=== PATIENT | male | born 1955 | race Caucasian/White ===

== ENCOUNTER → 2017-08-07 | Day surgery (SDC) | payer OTHER ==
[2017-07-27 09:36] VITALS: Ht 170.2 cm; Wt 70.5 kg
[~2017-08-07] VITALS: Ht 170.2 cm; Wt 70.5 kg
[~2017-08-07] MED LIST: ALPR-411 PO; ASPCH81X PO; ATROPINE SULFATE 0.1 MG/ML 5ML SYR IV PRN; CALC-393 PO; CHOL100040 PO; CYAN10005 PO; EpHEDrine SULFATE INJ 50 MG/ML AMP IV PRN; FENTANYL CITRATE INJ 50 MCG/1 ML 2 ML VIAL ONE; LIDOCAINE HCL 2% 2 ML VIAL (20MG/ML) ONE; MIDAZOLAM HCL 1 MG/ML 2ML VIAL ONE; MULT-506 PO; OMEP-334 PO; ONDANSETRON INJ 2 MG/ML 2 ML VIAL ONE; PROB1CAP PO; PROPOFOL IV EMULSION 10 MG/ML 20 ML VIAL ONE; VITA1TAB4 PO
[2017-08-07 09:29] VITALS: TEMP 36.6
--- NOTE | 2017-08-07 09:44 | Endo History and Physical ---
History & Physical Date of Service: August 07, 2017. Chief Complaint: abdominal pain and diarrhea Referring Physician: Dr. Keenan Cote History of Present Illness 62 yo CM who presents for Colonoscopy secondary to abdominal pain and diarrhea. Past Surgical History Hx Cardiac Surgery: No Hx Internal Defibrillator: No Hx Pacemaker: No Hx Abdominal Surgery: No Hx of Implantable Prosthesis: No Hx Post-Op Nausea and Vomiting: No Hx Cancer Surgery: Yes (BCC REMOVAL) Hx Thoracic Surgery: No Hx Orthopedic: Yes (LEFT ARM FX REPAIR, RT LEG COMPOUND FX REPAIR, RT SHOULDER OPEN SURGERY) Hx Urinary Tract Surgery: Yes (LITHOTRIPSY) Family History Polyp Social History Smoking Status: Former Smoker Hx Substance Use: No Hx Alcohol Use: Yes (2 BEERS A DAY) Allergies Coded Allergies: No Known Allergies (Verified , 07/27/17) Current Medications Reported Home Medications Medications Dose Route/Sig Max Daily Dose Days Date Category Vitamin B-12 (Cyanocobalamin) 1,000 Mcg Tab 1,000 Mcg PO DAILY 07/27/17 Reported Calcium (Calcium Carbonate) 600 Mg Tab 1 Tab PO DAILY 07/27/17 Reported Vitamin E 400 Unit Tab 1 Tab PO DAILY 07/27/[address] (Omeprazole) 40 Mg Cap 1 Cap PO DAILY 07/27/17 Reported Vitamin D-1000 (Cholecalciferol) 1,000 Unit Tab 1 Tab PO DAILY 07/27/17 Reported Cecily Rice (Probiotic Product) 1 Cap Cap 1 Tab PO DAILY 07/27/17 Reported Multivitamin (Multivitamins) Tab 1 Tab PO QAM 10/06/15 Reported Aspirin Chewable (Aspirin) 81 Mg Chew 81 Mg PO QAM 10/06/15 Reported Xanax (Alprazolam) 0.5 Mg Tab 0.5 Mg PO HS 10/06/15 Reported Vital Signs Weight (Kilograms): 70.45 Height (Feet): 5 Height (Inches): 7 Date Time Temp Pulse Resp B/P (MAP) Pulse Ox O2 Delivery O2 Flow Rate FiO2 08/07/17 09:29 36.6 75 20 149/96 (113) 97 Room Air Physical Exam General Appearance: WD/WN, no apparent distress Respiratory/Chest: Auscultation: breath sounds normal Cardiovascular: Heart Auscultation: RRR Abdomen: Bowel Sounds: normal Inspection & Palpation: soft, non-distended, no tenderness, guarding & rebound Assessment and Plan Assessment: 62 yo CM who presents for Colonoscopy secondary to abdominal pain and diarrhea. Plan: Proceed with colonoscopy
--- NOTE | 2017-08-07 10:40 | GI REPORT ---
Patient Name: Akash Barajas Procedure Date: 08/07/2017 10:04 AM Date of : 1955 Admit Type: Outpatient Age: 62 Gender: Male Attending MD: Jack Steve DO Procedure: Colonoscopy Providers: Jack Steve DO Referring MD: Keenan Cote Indications: Chronic diarrhea Medicines: Monitored Anesthesia Care Complications: No immediate complications. Estimated Blood Loss: Estimated blood loss: none. Procedure: Pre-Anesthesia Assessment: - Prior to the procedure, a History and Physical was performed, and patient medications and allergies were reviewed. The patient's tolerance of previous anesthesia was also reviewed. The risks and benefits of the procedure and the sedation options and risks were discussed with the patient. All questions were answered, and informed consent was obtained. Prior Anticoagulants: The patient has taken aspirin, last dose was 4 days prior to procedure. ASA Grade Assessment: II - A patient with mild systemic disease. After reviewing the risks and benefits, the patient was deemed in satisfactory condition to undergo the procedure. After I obtained informed consent, the scope was passed under direct vision. Throughout the procedure, the patient's blood pressure, pulse, and oxygen saturations were monitored continuously. The scope was introduced through the anus and advanced to the terminal ileum. The colonoscopy was performed without difficulty. The patient tolerated the procedure well. The quality of the bowel preparation was good. The terminal ileum, ileocecal valve, appendiceal orifice, and rectum were photographed. Findings: The perianal and digital rectal examinations were normal. Two flat and pedunculated polyps were found in the sigmoid colon. The polyps were 7 to 15 mm in size. These polyps were removed with a hot snare. Resection and retrieval were complete. Several random biopsies were obtained with cold forceps for histology in the entire colon. Fluid aspiration for Stool studies was performed in the entire colon. Non-bleeding internal hemorrhoids were found during retroflexion. The hemorrhoids were small. Impression: - Two 7 to 15 mm polyps in the sigmoid colon, removed with a hot snare. Resected and retrieved. - Non-bleeding internal hemorrhoids. - Several random biopsies were obtained in the entire colon. - Fluid aspiration was performed. Recommendation: - Resume previous diet. - Continue present medications. - Repeat colonoscopy for surveillance based on pathology results. - Return to GI office as previously scheduled. Jack Steve DO 08/07/2017 10:39:34 AM This report has been signed electronically. Note Initiated On: 08/07/2017 10:04 AM Number of Addenda: 0 I attest to the content of the Intraoperative Record and orders documented therein, exceptions below {[id number]}
--- NOTE | 2017-08-07 10:40 | Anesthesiology Progress Note ---
Anesthesia Post Op Note Date & Time August 07, 2017 at 10:40 Vital Signs Pain Intensity: 0 Vital Signs Past 12 Hours Date Time Temp Pulse Resp B/P (MAP) Pulse Ox O2 Delivery O2 Flow Rate FiO2 08/07/17 09:29 36.6 75 20 149/96 (113) 97 Room Air Notes Mental Status: alert / awake / arousable, participated in evaluation Pt Amnestic to Procedure: Yes Nausea / Vomiting: adequately controlled Pain: adequately controlled Airway Patency, RR, SpO2: stable & adequate BP & HR: stable & adequate Hydration State: stable & adequate Anesthetic Complications: no major complications apparent
--- NOTE | 2017-08-07 10:45 | Discharge Instructions ---
Endoscopy Patient Instructions Date / Procedure(s) Performed August 07, 2017. Colonoscopy Allergy Information Coded Allergies: No Known Allergies (Verified , 07/27/17) Discharge Date / Findings August 07, 2017. Colon polyps Internal hemorrhoids Random colon biopsies Stool studies Medication Instructions Stopped Medication(s): stopped 4 days ago OK to resume all medications today as prescribed Reported Home Medications Medications Dose Route/Sig Max Daily Dose Days Date Category Vitamin B-12 (Cyanocobalamin) 1,000 Mcg Tab 1,000 Mcg PO DAILY 07/27/17 Reported Calcium (Calcium Carbonate) 600 Mg Tab 1 Tab PO DAILY 07/27/17 Reported Vitamin E 400 Unit Tab 1 Tab PO DAILY 07/27/[address] (Omeprazole) 40 Mg Cap 1 Cap PO DAILY 07/27/17 Reported Vitamin D-1000 (Cholecalciferol) 1,000 Unit Tab 1 Tab PO DAILY 07/27/17 Reported Cecily Rice (Probiotic Product) 1 Cap Cap 1 Tab PO DAILY 07/27/17 Reported Multivitamin (Multivitamins) Tab 1 Tab PO QAM 10/06/15 Reported Aspirin Chewable (Aspirin) 81 Mg Chew 81 Mg PO QAM 10/06/15 Reported Xanax (Alprazolam) 0.5 Mg Tab 0.5 Mg PO HS 10/06/15 Reported Provider Instructions Activity Restrictions - No exercising or heavy lifting for 24 hours. - Do not drink alcohol the day of the procedure. - Do not drive a car or operate machinery until the day after the procedure. - Do not make any important decisions or sign important papers in 24 hours after the procedure. Following Day: - Return to full activity which may include returning to work/school. Diet Start your diet with liquids and light foods (jello, soup, juice, toast). Then eat your usual diet if not nauseated. Treatment For Common After Affects For mild abdominal pain, bloating, or excessive gas: - Rest - Eat lightly - Lie on right side Follow-Up Information Follow-up with Dr. Keenan Cote as scheduled Anesthesia Information What You Should Know You have had a procedure that required some medicine to reduce anxiety and discomfort. This treatment is called moderate sedation. After receiving the treatment, you may be sleepy, but you will be able to breathe on your own. The effects of the treatment may last for several hours. Follow these instructions along with Activity/Diet recommendations noted above: * Do NOT do anything where dizziness or clumsiness would be dangerous. * Rest quietly at home today, then you can be up and about tomorrow. * Have a responsible person stay with you the rest of today. * You may have had an I.V. today. If so, you may take the dressing off later today. Recommendations Call your doctor if: * Trouble breathing * Continuous vomiting for more than 24 hours * Temperature above 101 degrees * Severe abdominal pain or bloating * Pain not relieved by pain medicine ordered * There is increased drainage or redness from any incision * A large amount of rectal bleeding greater than 2-3 tablespoons. (If you had a polyp/s removed or have hemorrhoids, a small amount of blood - from the rectum is to be expected.) * You have any unanswered questions or concerns. IN THE EVENT OF A SERIOUS EMERGENCY, GO TO THE NEAREST EMERGENCY ROOM Your discharge instructions were prepared by provider Jack Steve. Patient Instructions Signature Page Akash Barajas Patient (or Guardian) Signature/Date: I have read and understand the instructions given to me by my caregivers. Caregiver/RN/Doctor Signature/Date: The above-named patient and/or guardian has received patient instructions on this date. + Original Patient Signature Page (only) stays with chart. Please make copy for patient.
[2017-08-07 11:07] VITALS: BP 123/80; PULSE 69; O2SAT 94
== END | disposition home or self-care (01) ==
LOC: C.GI 08:58
PROVIDERS: ATTEND Internal Medicine
DX: R10.9 Unspecified abdominal pain (principal); R19.7 Diarrhea, unspecified; D12.5 Benign neoplasm of sigmoid colon; K57.30 Diverticulosis of large intestine without perforation or abscess without bleeding; K64.8 Other hemorrhoids; K21.9 Gastro-esophageal reflux disease without esophagitis; N18.9 Chronic kidney disease, unspecified; F41.9 Anxiety disorder, unspecified; Z83.71 Family history of colonic polyps; Z87.891 Personal history of nicotine dependence; Z79.82 Long term (current) use of aspirin

== ENCOUNTER 2020-05-14 09:13 | Inpatient (IN) ==
--- NOTE | 2020-05-11 09:50 | Anesthesiology Consultation ---
Date of Service May 11, 2020 Assessment & Plan (1) Encounter for pre-operative examination: - Per assessment on 04/21: Travel screen negative. No known COVID-19 positive contacts or current COVID-19 related symptoms. Surgeon arranged preop COVID te sting (done 05/10; [place])- result was negative. - Cardiology/EP: 01/19/20: Loop recorder: His loop recorder is working well, battery life is still good. He did activate the recorder several times, one for some atypical chest discomfort, but none of the activation showed any abnormalities and he had no automatically activated episodes. Syncope: He has not had any falls or syncope since loop recorder implantation, and no asymptomatic arrhythmias have been identified which would explain the event. PAT: He has had rare episodes of PAT as well as premature beats identified in the past which he feels is palpitations, however these are brief and I would not treat them. - Hx anesthesia issues: Patient states that remotely (20+ years ago) he was told he was a difficult intubation (no further details/unable to obtain records). No similar issues with subsequent anesthesia/surgery. He also noted that there was difficultly with block placement for shoulder surgery (again 20+ years ago/unable to obtain records). BMI 23. Patient was seen at [facility] 02/10/20 by Justin Vallejo PAC (on exam: Mallampati I, >/= 3/5 finger breadths, mildly limited neck extension, partial upper dentures) Chart Review Chart Review: Acceptable Risk for Surgery and Patient NOT seen in Pre Admission Testing History Surgery Operation Date: 05/14/20 07:00 Proposed Procedures p Right Reverse Total Shoulder Arthroplasty - Kareem Hua DO Height/Weight Height: 5 ft 7 in Weight: 68.946 kg Allergies Allergy/AdvReac Type Severity Reaction Status Date / Time No Known Drug Allergies Allergy Verified 04/21/20 11:30 Medications Home Medications Medication Instructions Recorded Confirmed Last Taken cholecalciferol (vitamin D3) 1,000 unit PO QAM 02/11/18 04/21/20 03/30/19 [Vitamin D3] multivitamin 1 tab PO QAM 02/11/18 04/21/20 03/30/19 vitamin E 400 unit PO QAM 02/11/18 04/21/20 03/30/19 calcium carbonate-vitamin D3 1 tab PO QAM 04/08/18 04/21/20 03/30/19 [Caltrate with Vitamin D3] cyanocobalamin (vitamin B-12) 1,000 mcg PO QAM 04/08/18 04/21/20 03/30/19 [Vitamin B-12] lisinopril 5 mg tablet 5 mg PO QAM #90 tab 08/19/19 04/21/20 Unknown omeprazole 20 mg PO QAM 02/02/20 04/21/20 Unknown tramadol 50 mg tablet 50 mg PO Q6H PRN #30 tab 02/11/20 04/21/20 Unknown tramadol 50 mg tablet 50 mg PO Q6H PRN #30 tab 03/09/20 04/21/20 Unknown cephalexin 500 mg capsule 500 mg PO TID #21 cap 05/10/20 05/10/20 Unknown Past Medical History Medical History (Updated 05/11/20 @ 10:39 by Ana Hammond) Acid reflux Barretts esophagus being monitored q 3 yrs, no changes Cervical disc disease Colitis c. 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 per pt > under surveillance/no recent issues History of renal stone Hypertension Impaired fasting glucose Internal hemorrhoids Leukopenia Chronic, PCP monitoring Lymphocytic gastritis Osteoarthritis Paroxysmal atrial tachycardia Rare episodes noted on loop recorder Syncope Rare (only 2 episodes over the past 2 years) > reason loop recorder inserted > no significant findings/recent issues Past Family History Family History Father Family history of diabetes mellitus Family hx colonic polyps Mother Family hx colonic polyps Denies family history of Crohn's disease Colorectal cancer Ulcerative colitis Past Surgical History Surgical History (Updated 05/11/20 @ 10:39 by Ana Hammond) Basal cell carcinoma (BCC) with removal from face Colonic polyp with removal Difficult airway for intubation Patient states he was told this remotely 20 years ago (no further details/unable to obtain records), patient states no similar issues with subsequent anesthesia/surgery History of arthroscopy Right knee History of colonoscopy History of esophagogastroduodenoscopy (EGD) History of lithotripsy History of loop recorder Implanted 2017 History of tooth extraction Hx of foot surgery RIGHT AND LEFT FOOT PLANTAR FASCIATITIS REPAIR Hx of hand surgery FINGER FX REPAIRED Hx of shoulder surgery RT/LEFT> had difficulty with nerve block for one of these over 20 yrs ago Social History Smoking Status: Former smoker Smoking cigarettes per day: QUIT 2010 Hx Alcohol Use: Yes Alcohol type: beer alcohol intake frequency: a few times a month substance use type: does not use Testing Laboratory Results 05/10/20 WBC 4.15 (diff unremarkable, chronic leukopenia under surveillance by PCP) H/H 15.2/44.2 PLATELETS 25 SODIUM 140 POTASSIUM 4.5 CHLORIDE 108 CO2 29 BUN 18 CREATININE 0.94 GLUCOSE 91 02/10/20 PT 11.2 PTT 26.8 INR 1.1 T&S A+Ab- Electrocardiogram Date: 02/10/20 Findings: + NSR @ Findings: + SB @ (59bpm) and + no change from (03/2018) Chest X-Ray Date: 02/10/20 FINDINGS: Loop recorder device. Cardiomediastinal and hilar silhouettes are within normal limits. Mild hyperinflation with diaphragmatic flattening. No pneumothorax, pleural effusion, airspace consolidation or overt pulmonary edema. Bones of the chest appear grossly intact. Surgical anchors of the right humeral head. Chronic widening of the right AC joint. IMPRESSION: No acute process. Echocardiogram Date: 04/16/18 EF: 55-60% The LV size, thickness and function are normal. No regional wall motion abnormalities noted. Grade 1 diastolic dysfunction. Mild mitral regurgitation.
--- NOTE | 2020-05-13 11:52 | History & Physical Report ---
Date of Service May 13, 2020 Assessment & Plan (1) Right rotator cuff tear: We will proceed with a right reverse shoulder arthroplasty. Postoperatively he will be placed in a sling and kept overnight in the hospital for postoperative medical management. He plans to go to outpatient physical therapy at [facility] in [place] upon discharge. History of Present Illness Chief Complaint: Right rotator cuff arthropathy. Primary Care Provider: Mamta Lassiter MD Akash is a pleasant 64-year-old male whose had a right rotator cuff repair by Dr. Uriarte about 22 years ago. He initially did well but his shoulder has been hurting more recently. 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 He has constant pain and profound weakness. After failing conservative treatment, he elected to proceed with a right reverse shoulder arthroplasty.. Allergies Allergy/AdvReac Type Severity Reaction Status Date / Time No Known Drug Allergies Allergy Verified 04/21/20 11:30 Home Medications Medication Instructions Recorded Confirmed Type cholecalciferol (vitamin D3) 1,000 unit PO QAM 02/11/18 04/21/20 History [Vitamin D3] multivitamin 1 tab PO QAM 02/11/18 04/21/20 History vitamin E 400 unit PO QAM 02/11/18 04/21/20 History calcium carbonate-vitamin D3 1 tab PO QAM 04/08/18 04/21/20 History [Caltrate with Vitamin D3] cyanocobalamin (vitamin B-12) 1,000 mcg PO QAM 04/08/18 04/21/20 History [Vitamin B-12] lisinopril 5 mg tablet 5 mg PO QAM #90 tab 08/19/19 04/21/20 Rx omeprazole 20 mg PO QAM 02/02/20 04/21/20 History tramadol 50 mg tablet 50 mg PO Q6H PRN #30 tab 02/11/20 04/21/20 Rx tramadol 50 mg tablet 50 mg PO Q6H PRN #30 tab 03/09/20 04/21/20 Rx cephalexin 500 mg capsule 500 mg PO TID #21 cap 05/10/20 05/10/20 Rx Past Med/Surg History Medical History Acid reflux Barretts esophagus being monitored q 3 yrs, no changes Cervical disc disease Colitis c. 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 per pt > under surveillance/no recent issues History of renal stone Hypertension Impaired fasting glucose Internal hemorrhoids Leukopenia Chronic, PCP monitoring Lymphocytic gastritis Osteoarthritis Paroxysmal atrial tachycardia Rare episodes noted on loop recorder Syncope Rare (only 2 episodes over the past 2 years) > reason loop recorder inserted > no significant findings/recent issues Surgical History Basal cell carcinoma (BCC) with removal from face Colonic polyp with removal Difficult airway for intubation Patient states he was told this remotely 20 years ago (no further details/unable to obtain records), patient states no similar issues with subsequent anesthesia/surgery History of arthroscopy Right knee History of colonoscopy History of esophagogastroduodenoscopy (EGD) History of lithotripsy History of loop recorder Implanted 2017 History of tooth extraction Hx of foot surgery RIGHT AND LEFT FOOT PLANTAR FASCIATITIS REPAIR Hx of hand surgery FINGER FX REPAIRED Hx of shoulder surgery RT/LEFT> had difficulty with nerve block for one of these over 20 yrs ago Family History Father Family history of diabetes mellitus Family hx colonic polyps Mother Family hx colonic polyps Denies family history of Crohn's disease Colorectal cancer Ulcerative colitis Social History Smoking Status: Former smoker Cigarettes Per Day: QUIT 2010; Second Hand Exposure: No; Hx Alcohol Use: Yes Alcohol type: beer Alcohol Intake Frequency Comment: 2-3 drinks/day Preferred Language: Ukrainian Communication Ability: Effective Visual Impairment: Limited Hearing Ability: Normal [employer] Required: No Beliefs That Will Affect Care: None marital status: Current Living Situation: Spouse current occupational status: retired Feels Safe at Home: Yes Seatbelt Use: always Assistive Devices: Denture - Upper, Denture - Lower and Glasses Review of Systems All systems reviewed & are unremarkable except as noted in HPI & below. Physical Exam On physical examination of the right shoulder, he has relatively full active range of motion but only 3 out of 5 motor strength with full can testing in 4-5 motion with external rotation. He has a negative belly press test and pain in the subacromial space.. Constitutional WD/WN, vitals as above Eyes PERRL, conjunctivae normal, anicteric sclerae ENMT external ear and nose normal, oropharynx normal Neck trachea midline, no thyromegaly Respiratory normal respiratory effort Cardiovascular RRR, no murmur, no edema Gastrointestinal (Abdomen) normal bowel sounds, soft, nontender, no hepatosplenomegaly Psychiatric A+Ox3, euthymic affect Results & Data Results & Data Laboratory Results . Diagnostic Findings X-rays of the right shoulder show superior migration of the humeral head on the glenoid. There is contact with the humeral head and the acromion. There are signs of old anchor placement.. PG Care Time/CCT Total # of Minutes Spent Total Time Spent with Patient: Total time spent is greater than 50% in coordination of care (as documented) at patient's floor/unit and/or counseling patient: Coding Level of Care Code None Diagnoses Right rotator cuff tear M75.101
--- NOTE | 2020-05-14 09:12 | History & Physical Bridge Note ---
Date of Service May 14, 2020 History & Physical Bridge Note I have examined the patient, reviewed the History & Physical and in the interval since the performance of the History & Physical I have noted the following changes of clinical significance: no changes noted
[~2020-05-14 09:13] MED LIST changes: +ACETAMINOPHEN 500 MG TAB PO SCH; -ALPR-411 PO; -ASPCH81X PO; -ATROPINE SULFATE 0.1 MG/ML 5ML SYR IV PRN; +BUPIVACAINE 0.5 % 5 MG/1 ML PF 10ML VIAL ONE; -CALC-393 PO; -CHOL100040 PO; -CYAN10005 PO; +DEXAMETHASONE SOD INJ 4 MG/ML VIAL ONE; -EpHEDrine SULFATE INJ 50 MG/ML AMP IV PRN; +FAMOTIDINE 20 MG TAB PO SCH; -FENTANYL CITRATE INJ 50 MCG/1 ML 2 ML VIAL ONE; +GABAPENTIN 300 MG CAP PO SCH; -LIDOCAINE HCL 2% 2 ML VIAL (20MG/ML) ONE; +LIDOCAINE HCL 2% 2 ML VIAL/AMP(20MG/ML) INFIL ONE; +LR 15ML/HR IV SCH; +LR 60ML/HR IV SCH; -MULT-506 PO; -OMEP-334 PO; -PROB1CAP PO; +PROPOFOL IV EMULSION 10 MG/ML 20 ML VIAL IV ONE; -PROPOFOL IV EMULSION 10 MG/ML 20 ML VIAL ONE; +ROPIVACAINE 0.5% HCL/PF 150 MG, BUPIVACAINE 0.75% MPF 20 ML, EPINEPHrine 30MG/30ML (OR ... INSTIL SCH; +TRANEXAMIC ACID 1,000 MG **IV Intra-op IV SCH; +TRANEXAMIC ACID 1,000 MG **IV Pre-op IV SCH; -VITA1TAB4 PO; +ceFAZolin 1000MG 1,000 MG/7.5 ML SYR IV SCH; +dexAMETHasone 4 MG TAB PO SCH; +fentaNYL citrate 100 MCG/2 ML VIAL ONE
[2020-05-14] MEDS ORDERED: ATROPINE SULFATE 0.1 MG/ML 10ML SYR IV PRN (09:58)
[2020-05-14] MEDS ORDERED: fentaNYL citrate 100 MCG/2 ML VIAL IV PRN (09:58)
[2020-05-14] MEDS ORDERED: ONDANSETRON INJ 2 MG/ML 2 ML VIAL IV PRN ×2 (09:58→13:13)
[2020-05-14] MEDS ORDERED: ePHEDrine sulfate 50 MG/ML AMP IV PRN (09:58)
[2020-05-14] MEDS ORDERED: ORTHO JOINT ANESTHETIC ONE (10:00)
[2020-05-14] MEDS ORDERED: PHENYLEPHRINE 100MCG/ML 5ML SYR ONE (11:20)
[2020-05-14] MEDS ORDERED: ePHEDrine sulfate 50 MG/ML SYR ONE (11:20)
[2020-05-14] MEDS ORDERED: GLYCOPYRROLATE 0.2 MG/ML VIAL ONE (11:20)
--- NOTE | 2020-05-14 11:41 | Operative Report ---
PG Post Operative Report Pre & Post Diagnosis Operation Date: 05/14/20 11:40 Pre-Op Diagnosis: Right Shoulder Degenerative Joint Disease Post-Op Diagnosis: Right Shoulder Degenerative Joint Disease I identified the patient and participated in the time-out.: Yes Procedure Operation Date: 05/14/20 11:40 Actual Procedures p Right Reverse Total Shoulder Arthroplasty(Right) - Kareem Hua DO Surgeon Kareem Hua DO Risk Management Professional Kareem Chambers PAC Estimated Blood Loss 200 Findings Consistent with Post-Op Diagnosis Specimens Right humeral head Complications none Disposition Disposition: Recovery Room Indications Akash is a pleasant six 4-year-old male who underwent a rotator cuff repair 22 years ago. He initially did well but his shoulder is been worse recently. He is having difficulty doing any activities overhead. He has a lot of weakness in that shoulder. X-rays and clinical examination have been diagnostic for rotator cuff arthropathy of the right shoulder. After failing conservative treatment, he elected proceed with a right reverse shoulder arthroplasty. Description of Procedure Implants used: I used a [employer] Comprehensive reverse total shoulder arthroplasty system with a size 13 press fit micro humeral stem, a standard humeral tray and a standard humeral bearing, a 25 mm small augment baseplate with a 6.5 mm central screw and superior and inferior locking screws, and a size 40 mm eccentric glenosphere. Akash arrived at [facility] for the above procedure. He was seen in the preoperative holding area and the operative extremity was identified and s igned. He was given a preoperative antibiotic, TXA, and an interscalene nerve block. He was taken back to the operating room, laid on table in supine position, and put under general anesthesia. He was then put into the beachchair position. The shoulder was then prepped and draped in sterile fashion. A timeout was done and the patient and the operative extremity was properly identified. A deltopectoral approach was used. Dissection was taken down through the fascia and the deltoid was retracted laterally and the conjoined tendon was retracted medially. The anterior shoulder was exposed. The biceps tendon was chronically torn and not present. The subscapularis was then directly released off the lesser tuberosity with a peel technique. The inferior capsule was released and the humeral head was dislocated. A canal finding reamer was sent down the center of the humeral canal. Sequential reaming up to a size 13 reamer was done. Off that reamer, a proximal humeral resection guide was placed. The proximal humerus was resected at 135 of inclination and 25 of retroversion. Osteophytes were then removed and the glenoid was exposed. Time was spent doing a complete capsular and labral release. The glenoid guide was then placed in the inferior aspect of the glenoid. A 3.2 mm Steinmann pin was then placed into the glenoid vault at 10 of inclination. The glenoid baseplate was then reamed. The final size 25 mm small augment baseplate was then impacted in the place. A 6.5 mm central screw was then placed followed by superior and inferior locking screws. A 40 mm eccentric glenosphere was then impacted into place. Surrounding soft tissues were then injected with 100 cc an orthopedic pain control cocktail. The proximal humerus was then exposed. Sequential broaching of the humerus up to a size 13 broach was done. Off that broach a standard humeral tray was trialed. The shoulder was then reduced, brought through a full range of motion, and felt to be stable. The shoulder was then dislocated and the broach was removed. The final size 13 micro press-fit humeral stem was then impacted into place. A standard humeral bearing was then snapped onto a standard humeral tray. The humeral tray was then impacted onto the humeral stem. The shoulder was once again reduced, brought through a full range of motion, and felt to be stable. The subscapularis was then tenodesed back to the lesser tuberosity with transosseous FiberWire sutures and side to side sutures with the arm in 45 of external rotation. A dilute betadyne lavage was then done for 3 minutes. The joint was then irrigated with normal saline solution. Hemostasis was obtained. The interval was closed with 2-0 Vicryl suture. The skin was then closed with 2-0 Vicryl and katerine. A Silverlon dressing was placed and the arm was rested in a regular arm sling. He was then extubated and transferred to a hospital bed. He taken to the postanesthesia care unit in stable condition. He tolerated the procedure well. Kareem Chambers PA-C, was present for the entire procedure. He was critical for patient positioning, prepping, draping, retraction exposure, wound closure and application of sterile dressing. I attest to the content of the Intraoperative Record and any orders documented therein. Any exceptions are noted below.
--- NOTE | 2020-05-14 12:46 | Anesthesiology Progress Note ---
Date of Service May 14, 2020 Anesthesia Post Procedure Vital Signs Vital Signs: Temp Pulse Pulse Resp BP Pulse Ox 05/14/20 12:35 97.3 F L 84 16 125/87 94 05/14/20 12:25 92 H 17 148/79 H 94 05/14/20 12:15 95 H 22 128/78 93 05/14/20 12:05 96 H 15 150/95 H 98 05/14/20 11:59 96.8 F L 100 H 16 140/86 98 05/14/20 09:43 98.6 F 95 H 18 140/99 91 Transfer of Care Handoff Completed per policy Notes Mental Status: alert / awake / arousable and participated in evaluation Patient Amnestic to Procedure: Yes Nausea / Vomiting: adequately controlled Pain: adequately controlled Airway Patency, RR, SpO2: stable & adequate BP & HR: stable & adequate Hydration State: stable & adequate Anesthetic Complications: no major complications apparent and Pt Satisfied with anesthetic care
--- NOTE | 2020-05-14 12:51 | XRay Report ---
XR shoulder RT min 2V routine CLINICAL HISTORY: Post shoulder surgery COMPARISON: Right shoulder radiographs January 28, 2020. FINDINGS: Alignment of the reverse total right shoulder arthroplasty is anatomic. There is no peripr osthetic fracture. No unexpected radiopaque foreign bodies noted. There are skin katerine. Previous di stal right clavicular resection is noted. IMPRESSION: Expected findings following reverse total right shoulder arthroplasty. ACT 112: Negative or not required by law. Electronically signed by: Tomas Lassiter M.D. 05/14/2020 12:50 PM
[2020-05-14] MEDS ORDERED: METOCLOPRAMIDE HCL INJ 5 MG/ML 2 ML VIAL IV PRN (13:13)
[2020-05-14] MEDS ORDERED: bisacodyL 10 MG SUPP PR PRN (13:13)
[2020-05-14] MEDS ORDERED: NALOXONE HCL 0.4 MG/1 ML VIAL/CARP IV PRN (13:13)
[2020-05-14] MEDS ORDERED: MAGNESIUM HYDROXIDE SUSP 30 ML UDC PO PRN (13:13)
[2020-05-14] MEDS ORDERED: oxyCODONE HCL IR 5 MG TAB (IMMEDIATE RELEASE) PO PRN (13:13)
[2020-05-14] MEDS ORDERED: HYDROmorphone INJ 0.5 MG/0.5 ML SYR IV PRN (13:13)
[2020-05-14] MEDS: SODIUM CHLORIDE 0.9% 1000ML 1,000 ML IV SCH (13:25)
[2020-05-14] MEDS: ACETAMINOPHEN 500 MG TAB PO SCH ×2 (14:03→20:43)
[2020-05-14] MEDS: KETOROLAC TROMETHAMINE 15 MG/ML VIAL IV SCH ×2 (14:04→20:38)
[2020-05-14] MEDS ORDERED: COUGH DROP (SUGAR FREE) LOZ 24 LOZ/1 BOX BUCCAL PRN (16:12)
[2020-05-14] MEDS: ceFAZolin 2000MG 2,000 MG/15 ML SYR IV SCH (17:40)
[2020-05-14] MEDS: DOCUSATE SODIUM 100 MG CAP PO SCH (20:38)
[2020-05-14] MEDS ORDERED: SENNA 8.6 MG TAB PO SCH (21:00)
[2020-05-15] MEDS: KETOROLAC TROMETHAMINE 15 MG/ML VIAL IV SCH ×2 (01:51→08:24)
[2020-05-15] MEDS: ceFAZolin 2000MG 2,000 MG/15 ML SYR IV SCH (01:52)
[2020-05-15] MEDS: SODIUM CHLORIDE 0.9% 1000ML 1,000 ML IV SCH (02:28)
[2020-05-15] MEDS: ACETAMINOPHEN 500 MG TAB PO SCH (06:04)
[2020-05-15 06:17] LABS: Basophils # (auto) 0.01 K/uL (0-0.2); Basophils % (auto) 0.1 %; Eosinophils # (auto) 0.01 K/uL (0-0.5); Eosinophils % (auto) 0.1 %; Hematocrit (blood only) 36.2 % (42-52); Hemoglobin 12.4 g/dL (14.0-18.0); Immature Granulocytes # (auto) 0.01 K/uL (0.00-0.02); Immature Granulocytes % (auto) 0.1 %; Lymphocytes # (auto) 1.21 K/uL (1.2-3.4); Lymphocytes % (auto) 12.5 %; Mean Corpuscular Hemoglobin 33.8 pg (25-34); Mean Corpuscular Hgb Conc 34.3 g/dL (32-36); Mean Corpuscular Volume 98.6 fL (80-100); Mean Platelet Volume 9.3 fL (7.4-10.4); Monocytes # (auto) 1.17 K/uL (0.11-0.59); Monocytes % (auto) 12.1 %; Neutrophils # (auto) 7.24 K/uL (1.4-6.5); Neutrophils % (auto) 75.1 %; Platelet Count 196 K/uL (130-400); RDW Coefficient of Variation 12.7 % (11.5-14.5); RDW Standard Deviation 45.8 fL (36.4-46.3); Red Blood Count 3.67 M/uL (4.7-6.1); White Blood Count 9.65 K/uL (4.8-10.8)
[2020-05-15 06:47] LABS: BUN Creatinine Ratio 11.8 (10-20); Calcium 8.3 mg/dl (8.5-10.1); Est GFR (African American) 93.9; Potassium 3.9 mmol/L (3.5-5.1)
[2020-05-15] MEDS ORDERED: dexAMETHasone 4 MG TAB PO SCH (08:00)
--- NOTE | 2020-05-15 08:17 | Orthopedic Progress Note ---
Date of Service May 15, 2020 Assessment & Plan (1) Status post reverse arthroplasty of right shoulder: Overall he is doing very well. Is not having much pain in the right shoulder. He will be seen by physical therapy today for ambulation and range of motion exercises. He can be discharged home later today. He will follow-up with orthopedics in 2 weeks. Dara Bustos was seen and examined at bedside this morning. Overall is doing very well. Is not having much pain in the right shoulder. He is happy with his progress to this point. He has no complaints.. Review of Systems All systems reviewed & are unremarkable except as noted in HPI & below. Physical Exam On physical examination of the right shoulder, the dressing is clean and dry. His radial, median, and ulnar nerves are checked and intact at his wrist. His axillary nerve was not checked yet. He is wearing his sling as instructed.. Results & Data Results & Data Laboratory Results H & H 05/15/20 Range/Units 05:33 Hgb 12.4 L (14.0-18.0) g/dL Hct 36.2 L (42-52) % . Diagnostic Findings Postoperative x-rays of the right shoulder show the prosthesis to be in anatomic alignment without any evidence of fracture, dislocation, or loosening. PG Care Time/CCT Total # of Minutes Spent Total Time Spent with Patient: Total time spent is greater than 50% in coordination of care (as documented) at patient's floor/unit and/or counseling patient: Coding Level of Care Code 44058 Post Operative Follow-Up Diagnoses Status post reverse arthroplasty of right shoulder Z96.611
--- NOTE | 2020-05-15 08:19 | Discharge Summary ---
Date of Service May 15, 2020 Admission HPI (Per Admitting) Akash is a pleasant 64-year-old male whose had a right rotator cuff repair by Dr. Uriarte about 22 years ago. He initially did well but his shoulder has been hurting more recently. He is an avid fly fisherman. He is unable to tie flies serving [place]. He has constant pain and profound weakness. After failing conservative treatment, he elected to proceed with a right reverse shoulder arthroplasty.. Admission Exam (Per Admitting) On physical examination of the right shoulder, he has relatively full active range of motion but only 3 out of 5 motor strength with full can testing in 4-5 motion with external rotation. He has a negative belly press test and pain in the subacromial space.. Principal Diagnosis Same as "Discharge Diagnosis" noted below under Discharge Instructions. Discharge Exam On physical examination of the right shoulder, the dressing is clean and dry. His radial, median, and ulnar nerves are checked and intact at his wrist. His axillary nerve was not checked yet. He is wearing his sling as instructed.. Discharge Data Consultations 05/14/20 13:13 Consult Case Management - Discharge Planning Routine Procedures Performed Operation Date: 05/14/20 11:40 Actual Procedures p Right Reverse Total Shoulder Arthroplasty(Right) - Kareem Hua DO Ordered Studies 05/14/20 05:00 US - OR guided needle placemen Routine Hospital Course (1) Status post reverse arthroplasty of right shoulder: On May 14, 2020 Akash arrived at [facility] and underwent a right reverse shoulder arthroplasty without complication. He had a general anesthetic and a right interscalene nerve block. Postoperatively he was placed in a sling and transferred to the general orthopedic floors. His hospital course was uneventful. On postop day #1 his H&H was stable and his pain was well controlled. He was able to participate well with physical therapy doing ambulation and range of motion exercises. He was then discharged home. He will follow-up with orthopedics in 2 weeks. PG Care Time/CCT Total # of Minutes Spent Total Time Spent with Patient: Total time spent is greater than 50% in coordination of care (as documented) at patient's floor/unit and/or counseling patient: Discharge Plan Discharge Items Patient Disposition: Home - Home Health Services Reason For Visit: Right Shoulder Degenerative Joint Disease Discharge Diagnosis: Right reverse shoulder Activity: As commented below Non-emergency contact: Surgeon Call non-emergency contact if: your wound has increased redness Follow-up/Referrals: Mamta Lassiter MD [Primary Care Provider] - Diet: Regular Addtl Attending Provider Instructions: Activity and Therapy Recommendations: * If you are using [facility] then therapy will be provided at your home until they feel you have accomplished all of your goals. * If you are using [facility] then Physical Therapy will be provided until they feel you are ready to start Outpatient Physical Therapy. * If you are not using home therapy then Outpatient Physical Therapy should start about 3-5 days from your day of surgery. Therapy will last about 8-12 weeks * Wear your sling for 3 weeks, unless otherwise instructed. You may remove your sling to shower and to dress, but otherwise, you should be in your sling at all times, including while sleeping * The shoulder replacement is very stable and you can use your hand while in the sling * You were shown a series of exercises in the hospital. Do these exercises daily including the exercises you were shown in physical therapy. Medications: * Narcotic You will likely be sent home from the hospital with a prescription for the narcotic pain medication that worked best throughout your stay. * Other medications may be prescribed for specific circumstances. If you have any questions, please call the office at . * Resume previous home medications unless otherwise instructed Dressing Care: Leave the Silverlon dressing in place for 7 days. After 7 days you may remove the dressing. If the incision is not draining then you may leave the katerine open to air. If there is a little bit of drainage or if the katerine are getting stuck on your clothing then cover the incision with a dry dressing. The katerine will be removed at your 2 week follow-up appointment. Showering: You may shower with the Silverlon dressing in place. Do not let the shower spray hit the dressing directly. Pat the Silverlon dressing dry. If the dressing becomes wet underneath, then simply remove the dressing. Keep the incision dry until you are 7 days out from the day of surgery. After 7 days you may remove the Silverlon dressing and shower with the katerine exposed. Let soapy water run over the katerine and pat them dry. Do not scrub or soak the incision. Things To Watch For: * Drainage from the incision site that occurs more than one week after your surgery. * Increased redness at the incision site. * Fever above 102 degrees Fahrenheit. * Unusual chest pain or shortness of breath. * Call [facility] at with any of the above problems Follow-Up Visit: Follow-up with Dr. Hua's PA (Kareem Chambers) 2-3 weeks after your day of surgery. He will remove your katerine and answer any questions. If you have any additional questions or concerns, Dr Hua is usually in the office at the same time and will be available An appointment was probably scheduled when you signed-up for surgery in the office. If you have any questions call More detailed instructions as well as Frequently Asked Questions were provided in a folder by our office when you signed-up for surgery. Please review these instructions when you get home. If you have any further questions or concerns, please feel free to call the office at [phone] Pending Studies at Discharge: No Stand-Alone Forms: [facility], Smoking Cessation Medications and DC Order Prescriptions: New oxycodone 5 mg Tablet 5 mg PO Q4H PRN (Reason: pain) Qty: 30 RF: 0 Continued lisinopril 5 mg tablet 5 mg PO QAM Qty: 90 RF: 3 tramadol 50 mg tablet 50 mg PO Q6H PRN (Reason: pain) Qty: 30 RF: 0 tramadol 50 mg tablet 50 mg PO Q6H PRN (Reason: pain) Qty: 30 RF: 0 multivitamin Tablet 1 tab PO QAM RF: 0 vitamin E 400 unit Capsule 400 unit PO QAM RF: 0 cholecalciferol (vitamin D3) [Vitamin D3] 1,000 unit Capsule 1,000 unit PO QAM RF: 0 cyanocobalamin (vitamin B-12) [Vitamin B-12] 1,000 mcg Tablet 1,000 mcg PO QAM RF: 0 calcium carbonate-vitamin D3 [Caltrate with Vitamin D3] 600 mg(1,500mg) -800 unit Tablet 1 tab PO QAM RF: 0 omeprazole 20 mg capsule,delayed release(DR/EC) 20 mg PO QAM RF: 0 Discharge Orders: Discharge Order (Routine); Ordered 05/15/20 Ordered By: Kareem Hua Admission Data Admit Date/Time: 05/14/20 13:38 Attending Provider: Kareem Hua Admit Provider: Kareem Hua Primary Care Provider: Mamta Lassiter
[2020-05-15] MEDS: DOCUSATE SODIUM 100 MG CAP PO SCH (08:22)
[2020-05-15] MEDS ORDERED: PANTOprazole 40 MG TAB PO SCH (09:00)
[2020-05-15] MEDS ORDERED: lisinopril 5 MG TAB PO SCH (09:00)
[2020-05-15] MEDS ORDERED: MULTIVITAMIN TAB PO SCH (09:00)
== END 2020-05-15 11:07 | disposition home or self-care (01) | DRG 483 ==
LOC: ASU 09:13 → 3E 13:38

== ENCOUNTER 2020-12-14 19:55 | Inpatient (IN) ==
[2020-12-14] MEDS ORDERED: CEFEPIME 2,000 MG/20 ML VIAL IV STA (21:08)
[2020-12-14 22:11] LABS: Albumin Level 2.8 gm/dl (3.4-5.0); BUN Creatinine Ratio 14.6 (10-20); Calcium 8.9 mg/dl (8.5-10.1); Creatinine Clr Calc Pharmacy 76.2 ml/min; Est GFR (Non-African American) 88.9 ml/min; Potassium 3.7 mmol/L (3.5-5.1)
[2020-12-14 22:14] LABS: Albumin Globulin Ratio 0.6 (0.9-2); Bilirubin,Total 0.3 mg/dl (0.2-1); Globulin 4.5 gm/dl (2.5-4.0); Total Protein 7.3 gm/dl (6.4-8.2)
[2020-12-14 22:15] LABS: Hematocrit (blood only) 39.9 % (42-52); Mean Corpuscular Hemoglobin 33.5 pg (25-34); Mean Corpuscular Hgb Conc 35.1 g/dL (32-36); Mean Corpuscular Volume 95.5 fL (80-100); RDW Coefficient of Variation 12.6 % (11.5-14.5); RDW Standard Deviation 43.7 fL (36.4-46.3); Red Blood Count 4.18 M/uL (4.7-6.1); White Blood Count 2.66 K/uL (4.8-10.8)
--- NOTE | 2020-12-14 22:19 | Emergency Department Note ---
Impression & Plan Neutropenic fever, Neutropenia, Leukopenia ED Provider Note NAME: RACHEL DIAZ AGE: 65 SEX: M : 1955 ARRIVES VIA: Walk-In INFORMANT: Patient ED PROVIDER(S): Hussein Stark DO CHIEF COMPLAINT: fevers and weakness HPI: Patient is a 65-year-old male with a past story of SVT, leukopenia, gastric varices, Stone's esophagus, hypertension that presents to the ER for fevers. Patient was having fevers this weekend above 100.4. This occurred on Sunday. H e has been feeling very weak and rundown. He had blood work performed by his PCP today which showed an severe neutropenia. There was no blasts. He denies any headache or change in vision. No chest pain or shortness of breath. No nausea, vomiting, or diarrhea. No dysuria, urgency, or frequency. He had a mild left-sided abdominal ache which is now resolved. ROS: See above HPI for pertinent positives & negatives. A total of 10 systems reviewed and were otherwise negative. PAST MEDICAL HISTORY:See Below PAST SURGICAL HISTORY:See Below FAMILY HISTORY:See Below SOCIAL HISTORY:See Below HOME MEDICATIONS:See Below ALLERGIES:See Below VITALS:See Below PHYSICAL EXAMINATION: GENERAL: Sitting up in bed, alert, well appearing, well nourished, no distress, non-toxic EYE EXAM: normal conjunctiva. PERRL and EOM's grossly intact. OROPHARYNX: no exudate, no erythema, lips, buccal mucosa, and tongue normal and mucous membranes are moist NECK: supple, no nuchal rigidity, no adenopathy, non-tender LUNGS: Clear to auscultation. Normal chest wall mechanics HEART: no murmurs, S1 normal and S2 normal ABDOMEN: abdomen soft, non-tender, normo-active bowel sounds, no masses, no rebound or guarding. UPPER EXTREMITIES: upper extremities are grossly normal. LOWER EXTREMITIES: No pitting edema. NEURO EXAM: Normal sensorium, cranial nerves II-XII grossly intact, normal speech, no gross weakness of arms, no gross weakness of legs. MEDICAL DECISION MAKING: Patient is a 65-year-old male referred in by PCP for neutropenic fever. Patient has been having fevers over the weekend they were 101 on Sunday. Patient blood work done by PCP with a severe neutropenia in the 400s. WBC shows mild leukopenia at 2.6. Mild anemia. BMP along with LFTs bili was under unremarkabl e. UA was clean. Covid was negative. Patient was given IV cefepime for concern for neutropenic fevers. Patient was given IV fluids. Was monitored closely. Chest x-ray was unremarkable. He was updated at bedside. Discussed with the hospitalist for further evaluation. Triage Nursing notes reviewed. Limited review of prior medical records performed Vital Signs: reviewed and remarkable for HTN Differential diagnosis: Differential diagnosis includes etiologies such as sepsis, UTI, pneumonia, metabolic, electrolyte abnormalities, cardiac sources, intracerebral event, toxicologic, neurological, as well as others were entertained. ER treatment provided: See below Diagnostics interpreted by me: ECG: none Cardiac Monitoring: An order was placed for continuous cardiac monitoring. The monitor shows a rate of 62 with sinus rhythm. Laboratory studies: As stated above and show below. Imaging studies: Portable AP upright 1 view of the chest shows prosthetic right shoulder, loop recorder over the left chest wall, atelectasis in the right lower lobe, no focal infiltrate per my read Consultation(s): Discussed with Ruth Morris for further evaluation Procedures: none Critical Care: None Past Med/Surg History Medical History (Updated 12/15/20 @ 00:22 by Hussein Stark DO) Acid reflux Barretts esophagus being monitored q 3 yrs, no changes Basal cell carcinoma (BCC) with removal from face Cervical disc disease Colitis c. 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 per pt > under surveillance/no recent issues History of renal stone Hypertension Internal hemorrhoids Leukopenia Chronic, PCP monitoring Lymphocytic gastritis Osteoarthritis Paroxysmal atrial tachycardia Rare episodes noted on loop recorder Syncope Rare (only 2 episodes over the past 2 years) > reason loop recorder inserted > no significant findings/recent issues Surgical History (Updated 08/02/20 @ 11:29 by Bel Cerda RN) Colonic polyp with removal Difficult airway for intubation Patient states he was told this remotely 20 years ago (no further details/un able to obtain records), patient states no similar issues with subsequent anesthesia/surgery History of arthroscopy Right knee History of colonoscopy History of esophagogastroduodenoscopy (EGD) History of lithotripsy History of loop recorder Implanted 2017 History of surgical removal of skin lesion BCC removal from face History of tooth extraction Hx of foot surgery RIGHT AND LEFT FOOT PLANTAR FASCIATITIS REPAIR Hx of hand surgery FINGER FX REPAIRED Hx of shoulder surgery RT/LEFT> had difficulty with nerve block for one of these over 20 yrs ago Status post reverse arthroplasty of right shoulder (~04/2020) Family History Father Family history of diabetes mellitus Family hx colonic polyps Mother Family hx colonic polyps Denies family history of Crohn's disease Colorectal cancer Ulcerative colitis Social History Smoking Status: Never smoker Cigarettes Per Day: QUIT 2010; Second Hand Exposure: No; Hx Alcohol Use: Yes Alcohol type: beer Alcohol Intake Frequency Comment: 2-3 drinks/day Hx Substance Use: No Preferred Language: Malaysian Communication Ability: Effective Visual Impairment: No Limitations Hearing Ability: Normal Painter And Decorator Required: No Beliefs That Will Affect Care: None marital status: Current Living Situation: Spouse current occupational status: retired Feels Safe at Home: Yes Seatbelt Use: always Assistive Devices: Denture - Upper, Denture - Lower and Glasses Allergies Allergies Allergy/AdvReac Type Severity Reaction Status Date / Time No Known Drug Allergies Allergy Unknown Verified 12/14/20 21:02 Home Meds Home Medications Medication Instructions Recorded Confirmed cholecalciferol (vitamin D3) 25 1,000 unit PO QAM 02/11/18 12/14/20 mcg (1,000 unit) capsule (Vitamin D3) multivitamin 1 tab PO QAM 02/11/18 12/14/20 vitamin E 400 unit capsule 400 unit PO QAM 02/11/18 12/14/20 calcium carbonate-vitamin D3 600 1 tab PO QAM 04/08/18 12/14/20 mg (1,500 mg)-800 unit tablet (Caltrate with Vitamin D3) cyanocobalamin (vitamin B-12) 1,000 mcg PO QAM 04/08/18 12/14/20 1,000 mcg tablet (Vitamin B-12) omeprazole 20 mg capsule,delayed 20 mg PO QAM 08/02/20 12/14/20 release Previous Rx's Medication Instructions Recorded amoxicillin 500 mg tablet 2,000 mg PO ONCE PRN #4 tab 07/15/20 lisinopril 5 mg tablet 5 mg PO DAILY #90 tab 08/09/20 mometasone 0.1 % topical cream 1 applic TOPICAL DAILY PRN #45 g 09/22/20 Results & Data (ED) Vital Signs Vital Signs - 24 hr 12/14/20 20:00 12/14/20 20:46 12/14/20 22:00 Temperature 36.9 C Temperature Source Oral Pulse Rate 81 Pulse Rate [Carotid] 64 59 L Pulse Rhythm [Carotid] Regular Regular Pulse Strength [Carotid] Normal Respiratory Rate 18 9 L 14 Respiratory Effort / Characteristics Non-Labored Spontaneous Non-Labored Respiratory Depth Normal Normal Normal Respiratory Pattern Regular Blood Pressure 132/87 Blood Pressure [Left Arm] 150/87 H 145/89 H Blood Pressure Mean 102 Blood Pressure Mean [Left Arm] 108 107 Blood Pressure Position Sitting Blood Pressure Position [Left Arm] Sitting Lying Pulse Oximetry 96 96 96 Oxygen Delivery Method Room Air Room Air Room Air Sepsis Recent Fever Within 48 Hours Yes Sepsis New/Unexplained Change in Mental Status N/A Sepsis Action Taken by Nursing No Action Required 12/14/20 23:00 Temperature Temperature Source Pulse Rate Pulse Rate [Carotid] 61 Pulse Rhythm [Carotid] Pulse Strength [Carotid] Respiratory Rate 18 Respiratory Effort / Characteristics Respiratory Depth Respiratory Pattern Blood Pressure Blood Pressure [Left Arm] 140/82 Blood Pressure Mean Blood Pressure Mean [Left Arm] 101 Blood Pressure Position Blood Pressure Position [Left Arm] Pulse Oximetry 95 Oxygen Delivery Method Room Air Sepsis Recent Fever Within 48 Hours Sepsis New/Unexplained Change in Mental Status Sepsis Action Taken by Nursing Laboratory Data Result diagrams: 12/14/20 21:15 12/14/20 21:15 Lab Results 12/14/20 12/14/20 12/14/20 Range/Units 21:15 21:15 21:22 WBC 2.66 L (4.8-10.8) K/uL RBC 4.18 L (4.7-6.1) M/uL Hgb 14.0 (14.0-18.0) g/dL Hct 39.9 L (42-52) % MCV 95.5 (80-100) fL MCH 33.5 (25-34) pg MCHC 35.1 (32-36) g/dL RDW Std Deviation 43.7 (36.4-46.3) fL RDW Coeff of Sorin 12.6 (11.5-14.5) % Plt Count 94 L (130-400) K/uL MPV 9.4 (7.4-10.4) fL Neutrophils % (Manual) 25.4 % Lymphocytes % (Manual) 44.7 % Reactive Lymphs % (Man) 15.8 % Monocytes % (Manual) 11.4 % Eosinophils % (Manual) 1.8 % Basophils % (Manual) 0.9 % Neutrophils # (Manual) 0.68 L (1.4-6.5) K/uL Total Absolute Neuts 0.68 L* (1.4-6.5) K/uL Lymphocytes # (Manual) 1.19 L (1.2-3.4) K/uL Reactive Lymphs # 0.42 K/uL Total Abs Lymphocytes 1.61 (1.2-3.4) K/uL Monocytes # (Manual) 0.30 (0.11-0.59) K/uL Eosinophils # (Manual) 0.05 (0-0.5) K/uL Basophils # (Manual) 0.02 (0-0.2) K/uL RBC Morphology Unremarkable Sodium 141 (136-145) mmol/L Potassium 3.7 (3.5-5.1) mmol/L Chloride 106 (98-107) mmol/L Carbon Dioxide 28 (21-32) mmol/L Anion Gap 7.0 (3-11) BUN 13 (7-18) mg/dl Creatinine 0.88 (0.6-1.4) mg/dl Est Cr Clr Drug Dosing 76.2 ml/min Est GFR ( Amer) 103.0 ml/min Est GFR (Non-Af Amer) 88.9 ml/min BUN/Creatinine Ratio 14.6 (10-20) Glucose 87 (70-99) mg/dl Calcium 8.9 (8.5-10.1) mg/dl Total Bilirubin 0.3 (0.2-1) mg/dl AST 47 H (15-37) U/L ALT 46 (12-78) U/L Alkaline Phosphatase 73 (45-117) U/L Total Protein 7.3 (6.4-8.2) gm/dl Albumin 2.8 L (3.4-5.0) gm/dl Globulin 4.5 H (2.5-4.0) gm/dl Albumin/Globulin Ratio 0.6 L (0.9-2) Urine Color Urine Appearance (Clear) Urine pH (4.5-7.5) Ur Specific [place] (1.000-1.030) Urine Protein (Negative) Urine Glucose (UA) (Negative) Urine Ketones (Negative) Urine Blood (Negative) Urine Nitrite (Negative) Urine Bilirubin (Negative) Urine Urobilinogen (Negative) Ur Leukocyte Esterase (Negative) Urine WBC (Auto) Urine RBC (Auto) U Hyaline Cast (Auto) U Epithel Cells (Auto) Urine Bacteria (Auto) Ur Renal Epithelial Cell Urine Crystals Calcium Oxalate Crystal Uric Acid Crystals Triple Phos Crystals Other Crystals Amorphous Sediment Granular Casts Waxy Casts RBC Casts WBC Casts Other Casts Urine Mucus Urine Other Urine Trichomonas Urine Yeast Urine Sperm Ur Oval Fat Bodies COVID-19 Eval Order Covid19 at [facility] SARS-CoV-2 (PCR) (Negative) 12/14/20 12/14/20 12/14/20 Range/Units 21:22 22:35 Unknown WBC (4.8-10.8) K/uL RBC (4.7-6.1) M/uL Hgb (14.0-18.0) g/dL Hct (42-52) % MCV (80-100) fL MCH (25-34) pg MCHC (32-36) g/dL RDW Std Deviation (36.4-46.3) fL RDW Coeff of Sorin (11.5-14.5) % Plt Count (130-400) K/uL MPV (7.4-10.4) fL Neutrophils % (Manual) % Lymphocytes % (Manual) % Reactive Lymphs % (Man) % Monocytes % (Manual) % Eosinophils % (Manual) % Basophils % (Manual) % Neutrophils # (Manual) (1.4-6.5) K/uL Total Absolute Neuts (1.4-6.5) K/uL Lymphocytes # (Manual) (1.2-3.4) K/uL Reactive Lymphs # K/uL Total Abs Lymphocytes (1.2-3.4) K/uL Monocytes # (Manual) (0.11-0.59) K/uL Eosinophils # (Manual) (0-0.5) K/uL Basophils # (Manual) (0-0.2) K/uL RBC Morphology Sodium (136-145) mmol/L Potassium (3.5-5.1) mmol/L Chloride (98-107) mmol/L Carbon Dioxide (21-32) mmol/L Anion Gap (3-11) BUN (7-18) mg/dl Creatinine (0.6-1.4) mg/dl Est Cr Clr Drug Dosing ml/min Est GFR ( Amer) ml/min Est GFR (Non-Af Amer) ml/min BUN/Creatinine Ratio (10-20) Glucose (70-99) mg/dl Calcium (8.5-10.1) mg/dl Total Bilirubin (0.2-1) mg/dl AST (15-37) U/L ALT (12-78) U/L Alkaline Phosphatase (45-117) U/L Total Protein (6.4-8.2) gm/dl Albumin (3.4-5.0) gm/dl Globulin (2.5-4.0) gm/dl Albumin/Globulin Ratio (0.9-2) Urine Color Yellow Cancelled Urine Appearance Clear Cancelled (Clear) Urine pH 6.0 Cancelled (4.5-7.5) Ur Specific [place] 1.013 Cancelled (1.000-1.030) Urine Protein Negative Cancelled (Negative) Urine Glucose (UA) Negative Cancelled (Negative) Urine Ketones Negative Cancelled (Negative) Urine Blood Negative Cancelled (Negative) Urine Nitrite Negative Cancelled (Negative) Urine Bilirubin Negative Cancelled (Negative) Urine Urobilinogen Negative Cancelled (Negative) Ur Leukocyte Esterase Negative Cancelled (Negative) Urine WBC (Auto) Cancelled Urine RBC (Auto) Cancelled U Hyaline Cast (Auto) Cancelled U Epithel Cells (Auto) Cancelled Urine Bacteria (Auto) Cancelled Ur Renal Epithelial Cell Cancelled Urine Crystals Cancelled Calcium Oxalate Crystal Cancelled Uric Acid Crystals Cancelled Triple Phos Crystals Cancelled Other Crystals Cancelled Amorphous Sediment Cancelled Granular Casts Cancelled Waxy Casts Cancelled RBC Casts Cancelled WBC Casts Cancelled Other Casts Cancelled Urine Mucus Cancelled Urine Other Cancelled Urine Trichomonas Cancelled Urine Yeast Cancelled Urine Sperm Cancelled Ur Oval Fat Bodies Cancelled COVID-19 Eval Order SARS-CoV-2 (PCR) NEGATIVE (Negative) Administered Medications Discontinued Medications Cefepime HCl (Maxipime) 2,000 mg in 20 mls @ 5 mls/min IV NOW STA; Protocol Stop: 12/14/20 21:11 Last Admin: 12/14/20 22:00 Dose: 5 mls/min Documented by: [id number] Discharge Plan Visit Data Chief Complaint: Abnormal Labs/Diagnostic Testing Stated Complaint: ABNORMAL LABS ED Provider: Hussein Stark Discharge Problem: Neutropenic fever, Neutropenia, Leukopenia Forms Stand Alone Forms: My [facility] [employer] Prescriptions Prescriptions: No Action amoxicillin 500 mg tablet 2,000 mg PO ONCE PRN (Reason: prophylaxis) Qty: 4 RF: 2 lisinopril 5 mg tablet 5 mg PO DAILY Qty: 90 RF: 3 mometasone 0.1 % cream 1 applic topical DAILY PRN (Reason: skin irritation) Qty: 45 RF: 0 multivitamin Tablet 1 tab PO QAM RF: 0 vitamin E 400 unit Capsule 400 unit PO QAM RF: 0 cholecalciferol (vitamin D3) [Vitamin D3] 1,000 unit Capsule 1,000 unit PO QAM RF: 0 cyanocobalamin (vitamin B-12) [Vitamin B-12] 1,000 mcg Tablet 1,000 mcg PO QAM RF: 0 calcium carbonate-vitamin D3 [Caltrate with Vitamin D3] 600 mg(1,500mg) -800 unit Tablet 1 tab PO QAM RF: 0 omeprazole 20 mg capsule,delayed release(DR/EC) 20 mg PO QAM RF: 0 Referrals Referrals: Mamta Lassiter MD [Primary Care Provider] - Discharge Problem: Neutropenia Qualifiers: Neutropenia type: unspecified Qualified Code(s): D70.9 - Neutropenia, unspecified Leukopenia Qualifiers: Leukopenia type: unspecified Qualified Code(s): D72.819 - Decreased white blood cell count, unspecified
[2020-12-14 22:28] LABS: Mean Platelet Volume 9.4 fL (7.4-10.4); Platelet Count 94 K/uL (130-400)
[2020-12-14 23:05] LABS: Appearance Urine Clear (Clear); Bilirubin Urine Negative (Negative); Blood Urine Negative (Negative); Color Urine Yellow; Glucose Urine UA Negative (Negative); Ketones Urine Negative (Negative); Leukocyte Esterase Urine Negative (Negative); Nitrite Urine Negative (Negative); Protein Urine Negative (Negative); Specific Gravity Urine 1.013 (1.000-1.030); Urobilinogen Urine Negative (Negative)
[2020-12-14 23:38] LABS: RBC Morphology Unremarkable
[2020-12-14 23:39] LABS: ALC (manual) 1.61 K/uL (1.2-3.4); ANC (manual) 0.68 K/uL (1.4-6.5); Basophils # (manual) 0.02 K/uL (0-0.2); Basophils % (manual) 0.9 %; Eosinophils # (manual) 0.05 K/uL (0-0.5); Eosinophils % (manual) 1.8 %; Lymphocytes # (manual) 1.19 K/uL (1.2-3.4); Lymphocytes % (manual) 44.7 %; Monocytes % (manual) 11.4 %; Neutrophils # (manual) 0.68 K/uL (1.4-6.5); Neutrophils % (manual) 25.4 %; Reactive Lymphocytes # (manual) 0.42 K/uL; Reactive Lymphocytes % (manual) 15.8 %
[2020-12-15] MEDS ORDERED: SODIUM CHLORIDE 0.9% 500 ML IV ONE (00:28)
[2020-12-15 01:10] LABS: Lyme Ab IgG w/WB Rflx Negative (Negative); Lyme Ab IgM w/WB Rflx Negative (Negative)
[2020-12-15] MEDS ORDERED: POLYETHYLENE (MIRALAX) 17 GM PACK PO PRN (02:22)
[2020-12-15] MEDS ORDERED: ACETAMINOPHEN 325 MG TAB PO PRN (02:22)
--- NOTE | 2020-12-15 02:37 | History & Physical Report ---
Date of Service December 15, 2020 Assessment & Plan (1) Neutropenia: Plan: 65 yo M w/ pMHx. of Gastric varices, prior H/O C. diff, paroxysmal SVT, OA, reflux with Stone esophagus and HTN found to be neutropenic on labs. Moderate neutropenia, ANC 675.64 Unclear etiology, potentially d/t anaplasmosis given recent tick bite and lab findings vs. viral infection given recent history of vague illness vs. malignancy given night sweats although no weight loss vs. bacterial infection although no clear source CXR: similar to prior, COVID negative, thrombocytopenia with plt count of 94, AST elevated @ 47, afebrile here with last known fever Sunday Tmax 100.4F - admitted to med/surg tele - continue Cefepime for empiric coverage - started Doxycycline for possible tick born illness - consider 10 day course - peripheral smear pending - ordered anaplasma (smear and PCR) and lyme ab. testing - EBV and CMV ordered - blood cultures pending - follow ANC - may not ultimately determine cause and may require hematology referral for further testing and monitoring ETOH use - AWSS scoring in place - if persistently elevated consider starting Ativan protocol for AWSS scoring - oral thiamine and folic acid added HTN - continue Lisinopril Reflux - continue PPI Code: full Diet: regular DVT: SCD's (2) Osteoarthritis: (3) Hypertension: (4) Acid reflux: Admission and Anticipated Discharge Date Admission Date: December 15, 2020 History of Present Illness Chief Complaint: abnormal labs Primary Care Provider: Mamta Lassiter MD Akash Barajas is a 65-year-old male with a past medical history of gastric varices, prior H/O C. diff, paroxysmal SVT, OA, reflux with Stone esophagus and HTN here after he was noted to have abnormal labs ordered by PCP. He started feeling sick on Sunday of last week approx. 7 days ago when he noted sensitivity of his skin and then on Sunday night he noted joint pain. Sunday he had a temperature up to 100.4. He has had drenching sweats for the last 3 nights. Over the last couple days he has had some bloating and a distended abdomen. History of tick bite 2 weeks ago. Prior to this he was feeling well and stated that he rarely gets sick. No sick contacts. ED course: Cefepime Social Hx. Tobacco:3-5 cigarettes for 10 years quit 11 years ago ETOH: approx. 35 beers/week on average denies rec. drug use Alexus would like to be updated with any changes. # [phone] Allergies Allergy/AdvReac Type Severity Reaction Status Date / Time No Known Drug Allergies Allergy Unknown Verified 12/14/20 21:02 Home Medications Medication Instructions Recorded Confirmed Type cholecalciferol (vitamin D3) 25 1,000 unit PO QAM 02/11/18 12/14/20 History mcg (1,000 unit) capsule (Vitamin D3) multivitamin 1 tab PO QAM 02/11/18 12/14/20 History vitamin E 400 unit capsule 400 unit PO QAM 02/11/18 12/14/20 History calcium carbonate-vitamin D3 600 1 tab PO QAM 04/08/18 12/14/20 History mg (1,500 mg)-800 unit tablet (Caltrate with Vitamin D3) cyanocobalamin (vitamin B-12) 1,000 mcg PO QAM 04/08/18 12/14/20 History 1,000 mcg tablet (Vitamin B-12) amoxicillin 500 mg tablet 2,000 mg PO ONCE PRN #4 tab 07/15/20 12/14/20 Rx omeprazole 20 mg capsule,delayed 20 mg PO QAM 08/02/20 12/14/20 History release lisinopril 5 mg tablet 5 mg PO DAILY #90 tab 08/09/20 12/14/20 Rx mometasone 0.1 % topical cream 1 applic TOPICAL DAILY PRN #45 g 09/22/20 12/14/20 Rx Past Med/Surg History Medical History Acid reflux Barretts esophagus being monitored q 3 yrs, no changes Basal cell carcinoma (BCC) with removal from face Cervical disc disease Colitis c. 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 per pt > under surveillance/no recent issues History of renal stone Hypertension Internal hemorrhoids Leukopenia Chronic, PCP monitoring Lymphocytic gastritis Osteoarthritis Paroxysmal atrial tachycardia Rare episodes noted on loop recorder Syncope Rare (only 2 episodes over the past 2 years) > reason loop recorder inserted > no significant findings/recent issues Surgical History Colonic polyp with removal Difficult airway for intubation Patient states he was told this remotely 20 years ago (no further details/unable to obtain records), patient states no similar issues with subsequent anesthesia/surgery History of arthroscopy Right knee History of colonoscopy History of esophagogastroduodenoscopy (EGD) History of lithotripsy History of loop recorder Implanted 2017 History of surgical removal of skin lesion BCC removal from face History of tooth extraction Hx of foot surgery RIGHT AND LEFT FOOT PLANTAR FASCIATITIS REPAIR Hx of hand surgery FINGER FX REPAIRED Hx of shoulder surgery RT/LEFT> had difficulty with nerve block for one of these over 20 yrs ago Status post reverse arthroplasty of right shoulder (~04/2020) Family History Father Family history of diabetes mellitus Family hx colonic polyps Mother Family hx colonic polyps Denies family history of Crohn's disease Colorectal cancer Ulcerative colitis Social History Smoking Status: Former smoker Cigarettes Per Day: QUIT 2010; Smoking End Date: 2009; Second Hand Exposure: No; Do You Dip or Chew Tobacco: No; Tobacco Cessation Education Requested by Patient: No Hx Alcohol Use: Yes Alcohol type: beer Alcohol Intake Frequency Comment: 2-3 drinks/day Hx Substance Use: No Preferred Language: Montenegrin Communication Ability: Effective Visual Impairment: No Limitations Hearing Ability: Normal Regional Project Manager Required: No Beliefs That Will Affect Care: None marital status: Current Living Situation: Spouse Current Living Situation Comment: lives with at home. current occupational status: retired Other Information That Helps Us Care for You: No Feels Safe at Home: Yes Safety Concerns: Feels Safe At This Time Seatbelt Use: always Assistive Devices: Denture - Upper and Glasses Review of Systems Review of Systems: Constitutional: denies vomiting admits fever, chills, nausea, fatigue, general weakness, night sweats, 3lb weight gain Head: denies trauma, LOC admits mild headache Neurologic: denies syncope, slurring of speech, focal weakness, new numbness and tingling admits bilateral symmetric decreased sensation in hands (over the last few months) ENT: denies rhinorrhea, stuffiness, sneezing, sore throat Cardiac: denies chest pain, palpitations, leg swelling, orthopnea Pulm.: denies cough, shortness of breath, hemoptysis, sputum production GI: denies diarrhea, constipation, blood in stool, change in bowel habits : denies urgency, frequency, dysuria Physical Exam Constitutional: well developed and well nourished; no acute distress Eyes: PERRL, conjunctivae normal, anicteric sclerae ENMT: external ear and nose normal, oropharynx normal Neck: normal visual inspection Respiratory: normal respiratory effort, lungs clear to auscultation Cardiovascular: RRR, no murmur, no edema Gastrointestinal (Abdomen): - soft - no guarding - tender to palpation in the left upper quadrant Musculoskeletal: no cyanosis or clubbing, extremities motor strength 5/5 Skin: no rashes, warm and dry Neurologic: no focal motor deficits Psychiatric: A+Ox3, euthymic affect Results & Data Results & Data ([facility]) Vital Signs (Past 12 Hours) Vital Signs Temp Pulse Pulse Resp BP BP Pulse Ox 12/15/20 01:00 82 18 146/93 H 94 12/14/20 23:00 61 18 140/82 95 12/14/20 22:00 59 L 14 145/89 H 96 12/14/20 20:46 64 9 L 150/87 H 96 12/14/20 20:00 36.9 C 81 18 132/87 96 CBC Results Results Complete Blood Count Results: RBC 3.91 M/uL (4.7-6.1) L 12/15/20 WBC 3.28 K/uL (4.8-10.8) L 12/15/20 Hgb 13.0 g/dL (14.0-18.0) L 12/15/20 Hct 37.4 % (42-52) L 12/15/20 Plt Count 94 K/uL (130-400) L 12/14/20 Chemistry (BMP) Results BMP Results: Sodium 141 mmol/L (136-145) 12/14/20 Potassium 3.7 mmol/L (3.5-5.1) 12/14/20 Chloride 106 mmol/L (98-107) 12/14/20 BUN 13 mg/dl (7-18) 12/14/20 Creatinine 0.88 mg/dl (0.6-1.4) 12/14/20 Glucose 87 mg/dl (70-99) 12/14/20 Code Status & VTE Plan VTE Prophylaxis Plan VTE Prophylaxis will be ordered: Yes Supervising Physician Co-Signing Physician Notes Patient seen and examined, chart reviewed, case discussed with Dr. Woodruff and I agree with the assessment and plan as above. In brief, patient is a 65yo male presenting with leukopenia with neutropenia, thrombocytopenia. Fevers and sweats noted at home. Exam is largely unremarkable. No rash, murmurs, joint pain He does have some LUQ tenderness with palpation. Spleen does not seem to be enlarged. Labs and images reviewed Assessment/Plan - 65yo male with bicytopenia, neutropenia with fever prior to arrival. Ddx to include viral/infectious vs malignant. [place] and had a tick bite two weeks ago - no rash reported -Follow cultures, peripheral smear. Check anaplasmosis labs, EBV and CMV -Empiric antibiotics - Doxycycline, Cefepime for now -Remainder of plan as above Resident Activity Tracking Resident Involvement: Resident Care Provided Care Provided: Adult Hospital Medicine (1) Neutropenia Neutropenia type: unspecified Qualified Code(s): D70.9 - Neutropenia, unspecified
[2020-12-15 07:07] LABS: Hematocrit (blood only) 37.4 % (42-52); Mean Corpuscular Hemoglobin 33.2 pg (25-34); Mean Corpuscular Hgb Conc 34.8 g/dL (32-36); Mean Corpuscular Volume 95.7 fL (80-100); RDW Coefficient of Variation 12.5 % (11.5-14.5); RDW Standard Deviation 43.6 fL (36.4-46.3); Red Blood Count 3.91 M/uL (4.7-6.1); White Blood Count 3.28 K/uL (4.8-10.8)
--- NOTE | 2020-12-15 07:09 | Billing Data ---
Date of Service December 15, 2020 Coding Level of Care Code 43890 Initial Inpt Care Lvl 2
[2020-12-15 07:21] LABS: Mean Platelet Volume 8.8 fL (7.4-10.4); Platelet Count 82 K/uL (130-400)
[2020-12-15 07:33] LABS: Albumin Level 2.9 gm/dl (3.4-5.0); BUN Creatinine Ratio 14.3 (10-20); Calcium 8.6 mg/dl (8.5-10.1); Creatinine Clr Calc Pharmacy 79.8 ml/min; Est GFR (Non-African American) 90.6 ml/min; Potassium 4.1 mmol/L (3.5-5.1)
[2020-12-15 07:36] LABS: Albumin Globulin Ratio 0.9 (0.9-2); Bilirubin,Total 0.4 mg/dl (0.2-1); Globulin 3.2 gm/dl (2.5-4.0); Total Protein 6.1 gm/dl (6.4-8.2)
[2020-12-15 07:44] LABS: ALC (manual) 2.39 K/uL (1.2-3.4); ANC (manual) 0.54 K/uL (1.4-6.5); Basophils # (manual) 0.03 K/uL (0-0.2); Basophils % (manual) 0.9 %; Eosinophils # (manual) 0.09 K/uL (0-0.5); Eosinophils % (manual) 2.6 %; Lymphocytes # (manual) 1.45 K/uL (1.2-3.4); Lymphocytes % (manual) 44.3 %; Monocytes # (manual) 0.23 K/uL (0.11-0.59); Neutrophils # (manual) 0.54 K/uL (1.4-6.5); Neutrophils % (manual) 16.5 %; Reactive Lymphocytes # (manual) 0.94 K/uL; Reactive Lymphocytes % (manual) 28.7 %
--- NOTE | 2020-12-15 08:06 | XRay Report ---
XR chest 1V portable INDICATION: MN ^weakness. TECHNIQUE: Single frontal radiograph of the chest was obtained. Comparison: Comparison is made to chest one view 02/10/2020 FINDINGS: Stable appearance of loop recorder. Interval placement of right total shoulder arthroplasty. The card iomediastinal silhouette is normal. The lungs are clear. No evidence of pleural effusion or pneumotho rax. IMPRESSION: No acute chest disease. ACT 112: Negative or not required by law. Electronically signed by: Bashir Schumacher M.D. 12/15/2020 8:04 AM
--- NOTE | 2020-12-15 08:33 | Electrocardiogram Report ---
Test Reason : Blood Pressure : / mmHG Vent. Rate : 068 BPM Atrial Rate : 068 BPM P-R Int : 154 ms QRS Dur : 104 ms QT Int : 386 ms P-R-T Axes : 042 039 050 degrees QTc Int : 410 ms Normal sinus rhythm Normal ECG When compared with ECG of 10-FEB-2020 14:45, No significant change was found Confirmed by Corky Jessica ([id number]) on 12/15/2020 8:32:55 AM Referred By: Mamta Lassiter Confirmed By:Corky Jessica
[2020-12-15] MEDS ORDERED: THIAMINE HCL 100 MG TAB PO SCH (09:00)
[2020-12-15] MEDS ORDERED: FOLIC ACID 1 MG TAB PO SCH (09:00)
[2020-12-15] MEDS ORDERED: PANTOprazole 40 MG TAB PO SCH (09:00)
[2020-12-15] MEDS ORDERED: DOXYCYCLINE HYCLATE 100 MG CAP PO SCH (09:00)
[2020-12-15] MEDS ORDERED: lisinopril 5 MG TAB PO SCH (09:00)
[2020-12-15] MEDS ORDERED: CEFEPIME 2,000 MG in SYRINGE 0 ML IV SCH (09:00)
--- NOTE | 2020-12-15 13:13 | Ultrasound Report ---
US liver HISTORY: 65 years-old Male varices, neutropenia, alcohol use history reported abdominal varices. COMPARISON: CT abdomen and pelvis 03/20/2019 TECHNIQUE: Multiple real-time sonographic images of the abdominal right upper quadrant were obtained assessing grayscale appearance and color flow FINDINGS: No hepatic mass or marginal nodularity to suggest cirrhosis. Mildly heterogeneous nonspecific appeara nce of the liver. The gallbladder is within normal limits. No shadowing cholelithiasis, wall thickeni ng or pericholecystic fluid. Common bile duct is normal measuring 4 mm. The visualized pancreas is un remarkable. Unremarkable right kidney without hydronephrosis. IMPRESSION: Unremarkable right upper quadrant abdominal ultrasound. ACT 112: Negative or not required by law. The above report was generated using voice recognition software. It may contain grammatical, syntax o r spelling errors. Electronically signed by: Wes Carter M.D. 12/15/2020 1:11 PM
[2020-12-15 16:21] VITALS: BP 155/87; PULSE 82; TEMP 98.2; O2SAT 97
--- NOTE | 2020-12-15 18:01 | Discharge Summary ---
Date of Service December 15, 2020 Admission HPI Per Admitting Provider Akash Barajas is a 65-year-old male with a past medical history of gastric varices, prior H/O C. diff, paroxysmal SVT, OA, reflux with Stone esophagus and HTN here after he was noted to have abnormal labs ordered by PCP. He started feeling sick on Sunday of last week approx. 7 days ago when he noted sensitivity of his skin and then on Sunday night he noted joint pain. Sunday he had a temperature up to 100.4. He has had drenching sweats for the last 3 nights. Over the last couple days he has had some bloating and a distended abdomen. History of tick bite 2 weeks ago. Prior to this he was feeling well and stated that he rarely gets sick. No sick contacts. ED course: Cefepime Social Hx. Tobacco:3-5 cigarettes for 10 years quit 11 years ago ETOH: approx. 35 beers/week on average denies rec. drug use Alexus would like to be updated with any changes. # [phone] Admission Exam Per Admitting Provider Constitutional: well developed and well nourished; no acute distress Eyes: PERRL, conjunctivae normal, anicteric sclerae ENMT: external ear and nose normal, oropharynx normal Neck: normal visual inspection Respiratory: normal respiratory effort, lungs clear to auscultation Cardiovascular: RRR, no murmur, no edema Gastrointestinal (Abdomen): - soft - no guarding - tender to palpation in the left upper quadrant Musculoskeletal: no cyanosis or clubbing, extremities motor strength 5/5 Skin: no rashes, warm and dry Neurologic: no focal motor deficits Psychiatric: A+Ox3, euthymic affect Principal Diagnosis Neutropenia Discharge Exam Constitutional WD/WN, vitals as above well developed and well nourished; not ill appearing Eyes PERRL, conjunctivae normal, anicteric sclerae Neck trachea midline, no thyromegaly Respiratory normal respiratory effort; no respiratory distress and no labored breathing Cardiovascular RRR, no murmur, no edema Gastrointestinal (Abdomen) Inspection/Auscultation: abdomen normal to inspection; abdomen not distended Percussion/Palpation: abdomen soft Neurologic moves all extremities and awake; no focal motor deficits Speech / Cognition: normal speech Psychiatric A+Ox3, euthymic affect Discharge Data Allergies Allergy/AdvReac Type Severity Reaction Status Date / Time No Known Drug Allergies Allergy Unknown Verified 12/14/20 21:02 Consultations 12/14/20 21:09 ED Decision to Admit Stat Ordered Studies 12/15/20 09:16 US liver Routine Hospital Course (1) Neutropenia: 65 yo M w/ pMHx. of Gastric varices, prior H/O C. diff, paroxysmal SVT, OA, reflux with Stone esophagus and HTN admitted for neutropenic workup. Pancytopenia with neutropenia: - ANC 675.64 - negative anaplasmosis, afebrile, improving WBC - CXR clear, negative COVID, - EBV and CMV pending, however less likely with rapid improvement in symptoms - liver US negative for cirrhosis - Most likely viral etiology but given rapid improvement of symptoms and WBC, stable for d/c without antibiotics. Will continue to monitor pending blood cultures and call patient if positive. - Outpatient recheck cbc and work up. ETOH use - not in withdrawal - recognizes that he drinks "too many beers" per day, and thinks about it frequently. Discussed talking about cutting alcohol intake/cessation with PCP. All other chronic medical conditions managed per home regimen. (2) Osteoarthritis: (3) Hypertension: (4) Acid reflux: Total Time Total Time Spent Total Time Spent (In Minutes): see attending attestation Discharge Plan Discharge Items Patient Disposition: Home - Self-Care Reason For Visit: NEUTROPENIA Discharge Diagnosis: Neutropenia Activity: Resume your previous activity Non-emergency contact: Primary Care Provider Call non-emergency contact if: your symptoms worsen Follow-up/Referrals: Mamta Lassiter MD [Primary Care Provider] - 12/24/20 2:00 pm (If you have any questions or need to change this appointment, please call [phone].) Diet: Regular Addtl Attending Provider Instructions: Leukopenia - You were sent to the hospital for evaluation by your primary care provider for workup of neutropenia, or low white blood cell counts. The ultrasound of your liver was NEGATIVE and showed no signs of cirrhosis. The blood tests for bacterial and tick borne infection (anaplasmosis) were negative. A few tests for viral infection will take some time to come back, but given that you are feeling better and not having fevers, likelihood of them being positive is low. Most likely your body encountered a run of the mill virus which caused some mild stress on your bone marrow causing the blood counts. Your body should be able to clear the infection on its own. If any of the tests performed at the hospital come back positive for any reason, we will reach out to contact you about them. No medication changes were made during your hospital stay. If you have a sudden worsening of symptoms, such as repeated fevers >100.4F, night sweats, body pain, persistent nausea and vomiting, yellowing skin, return to the emergency department or your primary care office for evaluation. Your liver function remains normal at this time, but will worsen over time with continuing to drink the amount of alcohol that you do. Talk to your PCP about what options there are about what levels of alcohol are safe and what they can do to help you reduce or stop your alcohol use. Pending Studies at Discharge: No Stand-Alone Forms: [facility], Smoking Cessation Medications and DC Order Prescriptions: Continued amoxicillin 500 mg tablet 2,000 mg PO ONCE PRN (Reason: prophylaxis) Qty: 4 RF: 2 lisinopril 5 mg tablet 5 mg PO DAILY Qty: 90 RF: 3 mometasone 0.1 % cream 1 applic topical DAILY PRN (Reason: skin irritation) Qty: 45 RF: 0 multivitamin Tablet 1 tab PO QAM RF: 0 vitamin E 400 unit Capsule 400 unit PO QAM RF: 0 cholecalciferol (vitamin D3) [Vitamin D3] 1,000 unit Capsule 1,000 unit PO QAM RF: 0 cyanocobalamin (vitamin B-12) [Vitamin B-12] 1,000 mcg Tablet 1,000 mcg PO QAM RF: 0 calcium carbonate-vitamin D3 [Caltrate with Vitamin D3] 600 mg(1,500mg) -800 unit Tablet 1 tab PO QAM RF: 0 omeprazole 20 mg capsule,delayed release(DR/EC) 20 mg PO QAM RF: 0 Discharge Orders: Discharge Order (Routine); Ordered 12/15/20 Ordered By: Margarette Tolliver Admission Data Admit Date/Time: 12/15/20 00:38 Attending Provider: Leeann Barajas Admit Provider: Karthik Woodruff Primary Care Provider: Mamta Lassiter Other Providers: Johana Morris Other Interventions: Discharge Summary Assessment (RN) Last Done: 12/15/20 16:12 Supervising Physician Co-Signing Physician Notes Resident Physician Supervision Note: I independently interviewed and examined the patient and verified the fuentes history and physical, reviewed labs and image studies and agree with resident Dr. Tolliver findings and care plan.
[2020-12-17 11:51] LABS: CMV IgG Antibody <0.60 U/mL; CMV IgM Antibody <30.00 AU/mL
== END 2020-12-15 17:30 | disposition home or self-care (01) | DRG 866 ==
LOC: ED 19:55 → 2W 12-15 00:38 → SUATTDRO 12-15 00:38 → 2W 12-15 01:45

== ENCOUNTER 2024-03-03 08:05 | Observation (INO) ==
--- NOTE | 2024-02-01 10:57 | PAT Medication Instructions ---
Medication Instructions Date of Service February 01, 2024 Home Medications Medication Instructions Recorded amoxicillin 500 mg tablet 2,000 mg (4 x 500 mg) PO ONCE PRN 07/15/20 prophylaxis #4 tabs tramadol 50 mg tablet 50 mg PO Q6H PRN pain #30 tabs 01/01/24 cholecalciferol (vitamin D3) 25 mcg (1,000 unit) capsule (Vitamin D3) 1,000 unit PO QAM multivitamin 1 tab PO QAM vitamin E 268 mg (400 unit) capsule 400 unit PO QAM calcium 600 mg (as carbonate)-vitamin D3 20 mcg (800 unit) tablet (Caltrate with Vitamin D3) 1 tab PO QAM cyanocobalamin (vitamin B-12) 1,000 mcg tablet (Vitamin B-12) 1,000 mcg PO QAM amoxicillin 500 mg tablet 2,000 mg (4 x 500 mg) PO ONCE PRN prophylaxis tramadol 50 mg tablet 50 mg PO Q6H PRN pain celecoxib 200 mg capsule 200 mg PO DAILY PRN prn lisinopril 10 mg tablet 10 mg PO QAM omeprazole 20 mg capsule,delayed release 20 mg PO DAILY PRN prn Continue as directed amoxicillin 500 mg tablet 2,000 mg (4 x 500 mg) PO ONCE PRN prophylaxis (if needed) ASK your surgeon for instructions celecoxib 200 mg capsule 200 mg PO DAILY PRN prn STOP taking 2 weeks before surgery (or as soon as possible if surgery is within 2 weeks) vitamin E 268 mg (400 unit) capsule 400 unit PO QAM DO NOT take the morning of surgery cholecalciferol (vitamin D3) 25 mcg (1,000 unit) capsule (Vitamin D3) 1,000 unit PO QAM multivitamin 1 tab PO QAM calcium 600 mg (as carbonate)-vitamin D3 20 mcg (800 unit) tablet (Caltrate with Vitamin D3) 1 tab PO QAM cyanocobalamin (vitamin B-12) 1,000 mcg tablet (Vitamin B-12) 1,000 mcg PO QAM lisinopril 10 mg tablet 10 mg PO QAM Take morning of surgery With a small sip of water, OTHERWISE NOTHING TO EAT OR DRINK AFTER MIDNIGHT: tramadol 50 mg tablet 50 mg PO Q6H PRN pain (if needed) omeprazole 20 mg capsule,delayed release 20 mg PO DAILY PRN prn (if needed) Take evening before surgery tramadol 50 mg tablet 50 mg PO Q6H PRN pain (if needed) omeprazole 20 mg capsule,delayed release 20 mg PO DAILY PRN prn (if needed) Other Notes If you have any questions please call us at [phone] or [phone] or [phone] or [phone]
--- NOTE | 2024-02-06 14:33 | Anesthesiology Consultation ---
Date of Service February 06, 2024 Assessment & Plan (1) Encounter for pre-operative examination: Plan - Case discussed in detail with Dr. Russo who advised patient is acceptable to proceed and no clearances are needed. - patient was informed he had difficult airway for intubation > 20 yrs ago (no available records)-states has not had any issues with subsequent surgeries regarding intubation. He states did with well with most recent shoulder surgery including nerve block: right reverse TSA 05/14/20 LMA#5 + PNB. He notes severe sore throat after 07/2023 colonoscopy and noting redness of throat at home, resolved after several days. Anesthesia post-op progress note: "...Pt had CP with coughing postop. 12 lead EKG NSR no ischemic changes. Mild wheeze on exam rx'd albuterol neb x1 with good relief. OK for d/c..." He later saw ENT 08/08/23 for a painless left sided tongue lesion diagnosed as a mucocele with planned prn f/u. - upcoming spine surgery evaluation for lumbar spinal stenosis and per PCP records: "...numbness in his legs which significantly limits his ability to walk / stand for prolonged periods. Recently, he has also been experiencing some discomfort in his thoracic region - he describes a "buzzing" sensation along his rib cage. However, he started using his inversion table and this seems to have helped..." Outpatient joint assessment: Patient is currently scheduled for inpatient pathway. If re-evaluated and patient/surgeon requests outpatient pathway, patient is not candidate for outpatient joint program from anesthesia standpoint. Chart Review Chart Review: Acceptable Risk for Surgery and Patient seen in Pre Admission Testing Teaching & Discussion Pre-Anesthesia Teaching/Discussion Notes: Instructed NPO after midnight before surgery, except medications with 15 cc of water. Medication instructions provided according to the PAT guidelines. History Surgery Operation Date: 03/03/24 11:00 Proposed Procedures p Left Reverse Total Shoulder Arthroplasty - Kareem Hua DO Height/Weight Height: 5 ft 7 in Weight: 74.2 kg Allergies Allergy/AdvReac Type Severity Reaction Status Date / Time No Known Drug Allergies Allergy Unknown Verified 01/30/24 10:47 Medications Home Medications Medication Instructions Recorded Confirmed Last Taken cholecalciferol (vitamin D3) 25 1,000 unit PO QAM 02/11/18 02/06/24 07/25/23 mcg (1,000 unit) capsule (Vitamin D3) multivitamin 1 tab PO QAM 02/11/18 02/06/24 07/25/23 vitamin E 268 mg (400 unit) capsule 400 unit PO QAM 02/11/18 02/06/24 07/25/23 calcium 600 mg (as 1 tab PO QAM 04/08/18 02/06/24 07/25/23 carbonate)-vitamin D3 20 mcg (800 unit) tablet (Caltrate with Vitamin D3) cyanocobalamin (vitamin B-12) 1,000 mcg PO QAM 04/08/18 02/06/24 07/25/23 1,000 mcg tablet (Vitamin B-12) amoxicillin 500 mg tablet 2,000 mg (4 x 500 mg) PO ONCE PRN 07/15/20 02/06/24 06/07/20 prophylaxis #4 tabs tramadol 50 mg tablet 50 mg PO Q6H PRN pain #30 tabs 01/01/24 02/06/24 Unknown celecoxib 200 mg capsule 200 mg PO DAILY PRN prn 01/30/24 02/06/24 Unknown lisinopril 10 mg tablet 10 mg PO QAM 01/30/24 02/06/24 Unknown omeprazole 20 mg capsule,delayed 20 mg PO DAILY PRN prn 01/30/24 02/06/24 Unknown release aspirin 81 mg tablet,delayed 81 mg PO DAILY 02/06/24 02/06/24 Unknown release (Adult Aspirin Regimen) omega-3 fatty acids 1,000 mg 1,000 mg PO DAILY 02/06/24 02/06/24 Unknown capsule Past Medical History Medical History (Updated 02/07/24 @ 09:09 by Caro Farrell PA-C) Stone esophagus BPH (benign prostatic hyperplasia) Cervical disc disease Gastric varices unknown etiology found per pt > under surveillance/no recent issues GERD (gastroesophageal reflux disease) controlled, stable per pt History of anesthesia reaction colonoscopy 2023-immediately after procedure patient states he had an extreme sore throat and it was very red History of PSVT (paroxysmal supraventricular tachycardia) loop recorder inserted, no issues since- syncopal episode x 2; last episode ~ 2021- followed w/ Dr Mccollum, pt did not f/u after 2021 (06/2023- battery ) History of renal stone lithotripsy History of syncope Rare (last episode approx 2021 per pt) > reason loop recorder inserted > no significant findings/recent issues-patient states loop recorder battery is Hypertension controlled, stable per pt Internal hemorrhoids Leukopenia Chronic, PCP monitoring Lumbar spinal stenosis appointment with Dr Darden [facility] for surgical consultation 02/15/2024 Osteoarthritis Patient denies h/o stroke, seizures, heart attack, heart failure, DM, blood clots/DVTs or blood transfusions. Exercise / Class Metabolic Activity II 4-5 Yardwork/Stairs/Walk up hill (denies chest discomfort or shortness of breath with one flight of stairs) Past Family History Family History Father Family history of diabetes mellitus Family hx colonic polyps Mother Family hx colonic polyps Denies family history of Sudden Ovarian cancer Prostate cancer Crohn's disease Myocardial infarction Breast cancer Lung cancer Colorectal cancer Ulcerative colitis Stroke Past Surgical History Surgical History (Updated 02/06/24 @ 15:03 by Caro Farrell PA-C) Difficult airway for intubation Patient states he was told this remotely 20 years ago (no further details/unable to obtain records), patient states no similar issues with subsequent anesthesia/surgery History of arthroscopy Right knee History of colonoscopy History of esophagogastroduodenoscopy (EGD) History of lithotripsy History of loop recorder Implanted 2017, patient states battery is but loop recorder is still present History of surgery right leg History of surgery on arm left History of surgical removal of skin lesion BCC removal from face History of tooth extraction Hx of foot surgery right and left plantar fasciitis repair Hx of hand surgery fractured finger right repair Hx of shoulder surgery RT/LEFT> had difficulty with nerve block for one of these over 20 yrs ago Status post reverse arthroplasty of right shoulder (04/2020) Past Anesthesia History Difficult Airway, No Family Hx of Anesthesia Complications and Other (see above) History of PONV No Hx of PONV and No Hx of Motion Sickness Social History Smoking Status: Never smoker tobacco type: cigarettes Do You Dip or Chew Tobacco: No Hx Alcohol Use: Yes Alcohol type: beer alcohol intake frequency: 3 or more drinks per day (2-3 beers daily) Hx Substance Use: No substance use type: does not use Review of Systems Rare snoring, denies witnessed apneas. Patient denies chest pain, shortness of breath, dyspnea on exertion, fever, chills, cough, wheezing, or palpitations. Physical Exam Vital Signs Vitals BP 153/84 P 60 TEMP 98.3 SP02 98% on RA RESP 18 Physical Patient resting comfortably in chair in no acute distress, alert and oriented, responding appropriately throughout visit Full cervical extension range of motion without pain TMD 3.5 finger breadths Mallampati Score 3 Dentition: several caps/crowns and partial, denies chipped or loose teeth, implants or bridges Lungs: normal respiratory effort. Good air movement, clear throughout to auscultation, no adventitious breath sounds Cardiac: regular rate and rhythm, no murmurs noted Carotid arteries: negative bruit bilat Lab Results Anesthesia Preop Results Results Anesthesia Widget: WBC 4.42 K/ul (4.8-10.8) L 02/06/24 Hgb 14.5 g/dl (14.0-18.0) 02/06/24 Hct 41.6 % (42.0-52.0) L 02/06/24 Plt 258 K/uL (130-400) 02/06/24 Na 140 mmol/L (136-145) 02/06/24 K 4.0 mmol/L (3.5-5.1) 02/06/24 Cl 106 mmol/L (98-107) 02/06/24 CO2 27 mmol/L (21-32) 02/06/24 BUN 14 mg/dl (6-23) 02/06/24 Creat 0.86 mg/dl (0.6-1.4) 02/06/24 Glucose Level 99 mg/dl (70-99(Fasting)) 02/06/24 PT 10.8 Seconds (9.0-12.0) 02/06/24 PTT 26 Seconds (21-31) 02/06/24 INR 1.0 (0.9-1.1) 02/06/24 HA1c 5.3 % (4.5-5.6) 12/30/23 Blood Type A Positive 02/06/24 Antibody Screen NEGATIVE 02/06/24 Testing Electrocardiogram Date: 07/27/23 NSR, rate 64 bpm Chest X-Ray Date: 02/06/24 1. No acute cardiopulmonary disease. 2. Persistent increase in the right acromio-clavicular joint space distance noted. Echocardiogram Date: 04/16/18 EF 55-60% No regional wall motion abnormalities Grade I diastolic dysfunction Mild mitral regurgitation Other Testing Head and neck CTA 07/01/21 1. No significant stenosis, occlusion, or aneurysm within the [place]. 2. No significant stenosis, occlusion, or dissection identified within the carotid or vertebral arteries. 3. Additional findings as described above. Carotid doppler 04/23/18 < 50% stenosis ICAs bilat
[~2024-03-03 08:05] MED LIST changes: -ACETAMINOPHEN 500 MG TAB PO SCH; -DEXAMETHASONE SOD INJ 4 MG/ML VIAL ONE; -FAMOTIDINE 20 MG TAB PO SCH; -GABAPENTIN 300 MG CAP PO SCH; -LIDOCAINE HCL 2% 2 ML VIAL/AMP(20MG/ML) INFIL ONE; -LR 15ML/HR IV SCH; -LR 60ML/HR IV SCH; -MIDAZOLAM HCL 1 MG/ML 2ML VIAL ONE; -ONDANSETRON INJ 2 MG/ML 2 ML VIAL ONE; -PROPOFOL IV EMULSION 10 MG/ML 20 ML VIAL IV ONE; -ROPIVACAINE 0.5% HCL/PF 150 MG, BUPIVACAINE 0.75% MPF 20 ML, EPINEPHrine 30MG/30ML (OR ... INSTIL SCH; +SODIUM CHLORIDE 0.9% PF INJ 10 ML VIAL ONE; -TRANEXAMIC ACID 1,000 MG **IV Intra-op IV SCH; -TRANEXAMIC ACID 1,000 MG **IV Pre-op IV SCH; -ceFAZolin 1000MG 1,000 MG/7.5 ML SYR IV SCH; -dexAMETHasone 4 MG TAB PO SCH; -fentaNYL citrate 100 MCG/2 ML VIAL ONE
[2024-03-03] MEDS ORDERED: PROPOFOL IV EMULSION 10 MG/ML 20 ML VIAL IV ONE (08:31)
[2024-03-03] MEDS ORDERED: fentaNYL citrate PF 100 MCG/2 ML VIAL ONE (08:31)
[2024-03-03] MEDS ORDERED: LIDOCAINE 2% 2 ML VIAL/AMP(20MG/ML) INFIL ONE (08:31)
[2024-03-03] MEDS ORDERED: ONDANSETRON INJ 2 MG/ML 2 ML VIAL ONE (08:31)
[2024-03-03] MEDS ORDERED: MIDAZOLAM HCL 1 MG/ML 2ML VIAL ONE (08:31)
[2024-03-03] MEDS: dexAMETHasone**PF** 10 MG/ML VIAL IV SCH (08:54)
[2024-03-03] MEDS: GABAPENTIN 300 MG CAP PO SCH (08:54)
[2024-03-03] MEDS: FAMOTIDINE 20 MG TAB PO SCH (08:54)
[2024-03-03] MEDS: ACETAMINOPHEN 500 MG TAB PO SCH (08:54)
[2024-03-03] MEDS: SODIUM CHLORIDE 0.9% 1,000 ML IV SCH (08:55)
--- NOTE | 2024-03-03 09:11 | History & Physical Bridge Note ---
Date of Service March 03, 2024 History & Physical Bridge Note I have examined the patient, reviewed the History & Physical and in the interval since the performance of the History & Physical I have noted the following changes of clinical significance: no changes noted
[2024-03-03] MEDS ORDERED: ONDANSETRON INJ 2 MG/ML 2 ML VIAL IV PRN ×2 (09:52→11:43)
[2024-03-03] MEDS ORDERED: fentaNYL citrate PF 100 MCG/2 ML VIAL IV PRN (09:52)
[2024-03-03] MEDS ORDERED: KETOROLAC 30 MG/ML VIAL IV PRN (09:52)
[2024-03-03] MEDS ORDERED: LABETALOL HCL IV 5 MG/ML 20ML IV PRN (09:52)
[2024-03-03] MEDS ORDERED: ATROPINE SULFATE 0.1 MG/ML 10ML SYR IV PRN (09:52)
[2024-03-03] MEDS: TRANEXAMIC ACID 1,000 MG **IV Pre-op IV SCH (10:12)
[2024-03-03] MEDS: ceFAZolin 2000MG 2,000 MG/15 ML SYR IV SCH ×2 (10:25→18:30)
[2024-03-03] MEDS ORDERED: ePHEDrine sulfate 50 MG/ML AMP ONE (10:42)
[2024-03-03] MEDS: ORTHO JOINT ANESTHETIC ONE ×2 (11:04→11:05)
[2024-03-03] MEDS: ROPIV 0.5% 246mg, Ketorolac 30mg, EPINEPHrine 0.5mg in NSS INFIL SCH (11:04)
--- NOTE | 2024-03-03 11:24 | Operative Report ---
PG Post Operative Report Pre & Post Diagnosis Operation Date: 03/03/24 10:00 Pre-Op Diagnosis: Cuff tear arthropathy of the left shoulder Post-Op Diagnosis: Cuff tear arthropathy of the left shoulder I identified the patient and participated in the time-out.: Yes Procedure Operation Date: 03/03/24 10:00 Actual Procedures p Left Reverse Total Shoulder Arthroplasty(Left) - Kareem Hua DO Surgeon Kareem Hua DO Apprenticeship Representative Raquel Friedman PA-C Estimated Blood Loss 200 Findings Consistent with Post-Op Diagnosis Specimens Left humeral head Description of Procedure Implants used: I used a Biomet Comprehensive reverse total shoulder arthroplasty system with a size 11 press fit micro humeral stem, a standard humeral tray and a standard humeral bearing, a 25 mm small augment baseplate with a 6.5 mm central screw and superior and inferior locking screws, and a size 40 mm eccentric glenosphere. Akash arrived at [facility] for the above procedure. He was seen in the preoperative holding area and the operative extremity was identified and signed. He was given a preoperative antibiotic, TXA, and an interscalene nerve block. He was taken back to the operating room, laid on table in supine position, and put under general anesthesia. He was then put into the beachchair position. The shoulder was then prepped and draped in sterile fashion. A timeout was done and the patient and the operative extremity was properly identified. A deltopectoral approach was used. Dissection was taken down through the fascia and the deltoid was retracted laterally and the conjoined tendon was retracted medially. The anterior shoulder was exposed. The biceps tendon was already tenotomized. The subscapularis was then directly released off the lesser tuberosity with a peel technique. The inferior capsule was released and the humeral head was dislocated. A canal finding reamer was sent down the center of the humeral canal. Sequential reaming up to a size 11 reamer was done. Off that reamer, a proximal humeral resection guide was placed. The proximal humerus was resected at 135 of inclination and 25 of retroversion. Osteophytes were then removed and the glenoid was exposed. Time was spent doing a complete capsular and labral release. The glenoid guide was then placed in the inferior aspect of the glenoid. A 3.2 mm Steinmann pin was then placed into the glenoid vault at 10 of inclination. The glenoid baseplate was then reamed. The final size 25 mm small augment baseplate was then impacted in the place. A 6.5 mm central screw was then placed followed by superior and inferior locking screws. A 40 mm eccentric glenosphere was then impacted into place. Surrounding soft tissues were then injected with 100 cc an orthopedic pain control cocktail. The proximal humerus was then exposed. Sequential broaching of the humerus up to a size 11 broach was done. Off that broach a standard humeral tray was trialed. The shoulder was then reduced, brought through a full range of motion, and felt to be stable. The shoulder was then dislocated and the broach was removed. The final size 11 micro press-fit humeral stem was then impacted into place. A standard standard humeral bearing was then snapped onto a humeral tray. The humeral tray was then impacted onto the humeral stem. The shoulder was once again reduced, brought through a full range of motion, and felt to be stable. Subscapularis was poor quality and unable to be repaired. A dilute betadyne lavage was then done for 3 minutes. The joint was then irrigated with normal saline solution. Hemostasis was obtained. The interval was closed with 2-0 Vicryl suture. The skin was then closed with 2-0 Vicryl and katerine. A Silverlon dressing was placed and the arm was rested in a regular arm sling. He was then extubated and transferred to a hospital bed. He taken to the postanesthesia care unit in stable condition. He tolerated the procedure well. Raquel Friedman PA-C, was present for the entire procedure. He was critical for patient positioning, prepping, draping, retraction exposure, wound closure and application of sterile dressing. I attest to the content of the Intraoperative Record and any orders documented therein. Any exceptions are noted below.
[2024-03-03] MEDS: TRANEXAMIC ACID 1,000 MG **IV Intra-op IV SCH (11:25)
[2024-03-03] MEDS ORDERED: diphenhydrAMINE Capsule 25 MG CAP PO PRN (11:43)
[2024-03-03] MEDS ORDERED: oxyCODONE HCL IR 5 MG TAB (IMMEDIATE RELEASE) PO PRN (11:43)
[2024-03-03] MEDS ORDERED: bisacodyL 10 MG SUPP PR PRN (11:43)
[2024-03-03] MEDS ORDERED: METOCLOPRAMIDE HCL INJ 5 MG/ML 2 ML VIAL IV PRN (11:43)
[2024-03-03] MEDS ORDERED: HYDROmorphone INJ 0.5 MG/0.5 ML SYR IV PRN (11:43)
[2024-03-03] MEDS ORDERED: NALOXONE HCL 0.4 MG/1 ML VIAL/CARP IV PRN (11:43)
[2024-03-03] MEDS ORDERED: MAGNESIUM HYDROXIDE SUSP 30 ML UDC PO PRN (11:43)
[2024-03-03] MEDS ORDERED: ACETAMINOPHEN 1,000 MG/100 ML VIAL IV PRN (11:43)
--- NOTE | 2024-03-03 12:23 | XRay Report ---
XR shoulder LT min 2V routine HISTORY: 68 years-old Male Post shoulder surgery left shoulder arthroplasty COMPARISON: Radiographs 02/06/2024 TECHNIQUE: 3 views of the left shoulder FINDINGS: Reversed total joint arthroplasty. Satisfactory alignment without acute fracture. Overlying skin stap les are seen along with expected postoperative soft tissue swelling and deep tissue air. IMPRESSION: Satisfactory alignment of the left shoulder arthroplasty. ACT 112: Negative or not required by law. The above report was generated using voice recognition software. It may contain grammatical, syntax o r spelling errors. Electronically signed by: Wes Carter M.D. 03/03/2024 12:22 PM
--- OUTSIDE RECORDS SUMMARY | 2024-03-03 12:27 | External Medical Summary | Continuity of Care Document ---
Author Name Unknown Organization [facility] [address] [id number] Address [address], [place] [id number] Care Team Providers Care Hand Launderer Name Role Phone Mamta Lassiter Primary Care Physician [phone] Encounter [facility] [id number] Date(s): 02/15/24 - 02/15/24 [facility] [address] [id number] [facility] [address] [place] [id number] Encounter Diagnosis Spondylolisthesis of lumbar region(Discharge Diagnosis) - 02/15/24 Lumbar spinal stenosis(Discharge Diagnosis) - 02/15/24 Discharge Disposition: Home or Self Care Attending Physician: MD Quinonez Jesse E Referring Physician: MD Lassiter Cynthia D Allergies, Adverse Reactions, Alerts No Known Allergies Assessment and Plan Extracted from: Title:Orthopaedics Office Visit Note Author:Jace madden MD, Kwame Date:02/15/24 1.Spondylolisthesis of lum bar region Patient's worsening of numbness in his left leg with activity and severe L4-5 central canal stenosis and L4 on L5 grade 2 anteriolisthesis is consistent with neurogenic claudication from severe central canal stenosis. Patient has completed PT and is doing HEP without relief, and celebrexonly provides partial relief of low back pain. Discussed various options, including an epidural steroid injection, which may provide temporary relief. Patient had previously poor relief with injection, and is hesitantwith this option. Also discussed surgical decompression and fusion, which would provide more lasting relief. Patient would be limited for bending, lifting, and twisting for several months following surgery. Patient would like time to consider options, and should he wish to proceed with surgery, will require an additionalappointment to meet with Dr. Darden and anesthesia. He is planning to have shoulder surgery, and discussed giving sufficient time to recover before proceeding with spine surgery. Will follow up as indicated. 2.Lumbar spinal stenosis Medications celecoxib 200 mg oral capsule Start: 02/15/24 1:14:00 PM EST, 1 cap, PO, ONCE, PRN: as needed for pain Start Date: 02/15/24 Status: Ordered lisinopril 10 mg oral tablet Start: 02/15/24 1:14:00 PM EST, 1 tab, PO, Daily Start Date: 02/15/24 Status: Ordered omeprazole 20 mg oral delayed release capsule Start: 02/15/24 1:14:00 PM EST, 1 cap, PO, Daily Start Date: 02/15/24 Status: Ordered Mental Status 02/15/24 Barriers to Learning one year None evide nt Mandatory Health Literacy Documentation Yes Health Literacy Communication Barriers N ever Primary Language Pashto Problem List No Chronic Problems Diagnosis Diagnosis Type Effective Dates Health Status Clinical Service Informant Spondylolisthesis of lumbar region Discharge Diagnosis 02/15/24 Lumbar spinal stenosis Discharge Diagnosis 02/15/24 Vital Signs Most recent to oldest [Reference Range]: 1 Height 170.18 cm (02/15/24 1:14 PM) Patient Weight 70.76 kg (02/15/24 1:14 PM) Body Mass Index 24.43 kg/m2 (02/15/24 1:14 PM) Social History Social History Type Response Smoking Status Never smoked cigaret tobin Sex Male Sex Representation Male (finding) Ortho Outpt Note * MD Katalina, Miguel A: PERFORM Event Display: Ortho Outpt Note Authored Date: [id number] Name:AKASH BARAJAS Patient Number:[id number] :1955 Date of Service:02/15/2024 Akash was seen in clinic today with Dr.Daniel Delgado. I saw the patient, evaluated them, and formulated the assessment of plan. Please see a copy of Dr. Delgado 's note for details of the encounter. Briefly,Akash has a history of chronic low back painover many years. He more recentlydeveloped claudicatory symptoms in his lower extremities. Hehasdone physical therapy in the past. He does aregulartherapistprescribed home programon a daily basisand has done this for the last12 months or more. Is not interested in injections. Imaging:Personally interpreted x-rays of his lumbar spine which showed degenerative spondylolisthesis at L4-5. I personally interpreted his lumbar MRI which shows severe lumbar spinal stenosis atL4-L5. Assessment and plan:Akash is a 68-year-old man with lumbar spinal stenosis and degenerative spondylolisthesis. He is interested in pursuing surgery. He isfailed a very long course of therapistdirected home physical therapy. He is not interested in injections. He is a good surgical candidate because his biggest complaintsare his leg symptoms. We will go and get him on the schedulefor an L4-5 laminectomy and fusion with instrumentationand a transforaminal lumbar interbody fusion at that level. Will see him back for history and physical visitin [facility] to his surgery. Electronic Signature on File Electronically Reviewed/Signed by: Miguel Darden MD Author Signature Dt/Tm:02/15/2024 03:29 PM Division of Orthopaedics CLAIRE * MD Delgado Daniel: PERFORM Event Display: Ortho Outpt Note Authored Date: [id number] Primary Care Provider MD Lassiter Cynthia D Referring Provider MD Lassiter Cynthia D Chief Complaint Referred for lumbar pain /Mri review History of Present Illness Akash Barajas is a68M who presents to orthopedic clinic for left leg numbness and low back pain. Onset: 25 years ago, gradually worsening, has been having trouble with standing due to numbness of left foot Location: mid-low and left low back pain Quality: achy, dull Radiation: occasionally to foot Provocation: standing still Palliation: sitting Medication: celebrex, with relief Therapy: last completed one year ago, and is doing HEP Injections: 20 years ago had injection at [facility] without relief, unsure what was performed Associated with tingling in feet, started one ago in the right side. Unsure if has weakness., denies spasms in low back or legs. Physical Exam Vitals & Measurements HT:170.18cm WT:70.760kg(Dosing) WT:70.76kg BMI:24.43 Low back exam: Appearance: No deformities noted, patient is ambulating with slow reciprocalgait Palpation: No TTP over midline spinous processes. NoSI joint tenderness noted, no tenderness noted over sciatic notches bilaterally, no tenderness or greater trochanters Back ROM: no pain with L/S flexion + pain with L/S extension + with facet loading on the left normal ROM with sidebending patienthasleft foot numbness with standing for 20 seconds Strength: 5/5 withplantarflexion/dorsiflexion,foot inversion/eversion,knee flexion/extension,and hip flexion/extension and hip abduction/adduction Sensation: Intact overL2, L3, L4, L5, and S1 dermatomes Special test: negative seated andstraight leg raise, negative LESTER, negative FADIR bilaterally Diagnostic Results MRI lumbar spine: L4 on L5 grade 2 anteriolisthesis, severecentralcanal stenosis, worse at L4-5. no acute fracture appreciated Assessment/Plan 1.Spondylolisthesis of lumbar region Patient's worsening of numbness in his left leg with activity and severe L4-5 central canal stenosis and L4 on L5 grade 2 anteriolisthesis is consistent with neurogenic claudication from severe central canal stenosis. Patient has completed PT and is doing HEP without relief, and celebrexonly provides partial relief of low back pain. Discussed various options, including an epidural steroid injection, which may provide temporary relief. Patient had previously poor relief with injection, and is hesitantwith this option. Also discussed surgical decompression and fusion, which would provide more lasting relief. Patient would be limited for bending, lifting, and twisting for several months following surgery. Patient would like time to consider options, and should he wish to proceed with surgery, will require an additionalappointment to meet with Dr. Darden and anesthesia. He is planning to have shoulder surgery, and discussed giving sufficient time to recover before proceeding with spine surgery. Will follow up as indicated. 2.Lumbar spinal stenosis Problem List/Past Medical History Ongoing No chronic problems Medications celecoxib(celecoxib 200 mg oral capsule), 200 mg= 1 cap, PO, ONCE, PRN lisinopril(lisinopril 10 mg oral tablet), 10 mg= 1 tab, PO, Daily omeprazole(omeprazole 20 mg oral delayed release capsule), 20 mg= 1 cap, PO, Daily Allergies NKA Social History Smoking Status Never smoked cigarettes Recommendations Health Maintenance Pending(in the next year) OverDue Adult Influenza Vaccine due09/23/23and every 1year Due Medicare Annual Wellness Visit due02/15/24and every 1year Satisfied(in the past 1 year) There are no satisfied recommendations within the defined date range Electronic Signature on File Electronically Reviewed/Signed by: Kwame Delgado MD Author Signature Dt/Tm:02/15/2024 02:09 PM Resident Division of Sports Medicine Electronically Reviewed/Signed by: Miguel Darden MD Cosigner Signature Dt/Tm: 02/15/2024 03:46 PM Division of Orthopaedics DS Patient Care team information Care Team Personnel Name: MD Maikol, Mamta Cordova Position: Referring Member Role: Primary Care Provider Address: [address] [place], [place] [address] [id number]
[2024-03-03] MEDS: LR 60ML/HR IV SCH (14:46)
[2024-03-03] MEDS: LR 15ML/HR IV SCH (14:46)
--- NOTE | 2024-03-03 14:49 | Anesthesiology Progress Note ---
Date of Service March 03, 2024 Anesthesia Post Procedure Vital Signs Vital Signs: Temp Pulse Resp BP Pulse Ox O2 Del Method O2 Flow Rate 03/03/24 14:00 89 18 123/71 94 Nasal Cannula 2 03/03/24 13:30 85 16 105/61 95 Nasal Cannula 2 03/03/24 13:00 71 18 119/64 94 Nasal Cannula 2 03/03/24 12:45 72 18 114/64 95 Nasal Cannula 2 03/03/24 12:30 87 16 134/73 92 Nasal Cannula 2 03/03/24 12:25 36.5 C 85 16 133/74 96 Nasal Cannula 2 03/03/24 12:15 89 16 141/74 H 95 Nasal Cannula 2 03/03/24 12:05 92 H 16 147/82 H 96 Oxymask 4 03/03/24 11:55 98 H 20 149/79 H 96 Oxymask 4 03/03/24 11:45 36.1 C L 108 H 12 171/89 H 96 Oxymask 6 03/03/24 08:32 36.8 C 70 18 159/89 H 93 Room Air Transfer of Care Handoff Completed per policy Notes Mental Status: alert / awake / arousable Patient Amnestic to Procedure: Yes Nausea / Vomiting: adequately controlled Pain: adequately controlled Airway Patency, RR, SpO2: stable & adequate BP & HR: stable & adequate Hydration State: stable & adequate Anesthetic Complications: no major complications apparent
[2024-03-03] MEDS: KETOROLAC TROMETHAMINE 15 MG/ML VIAL IV SCH (15:39)
[2024-03-03] MEDS: DOCUSATE SODIUM 100 MG CAP PO SCH (20:58)
[2024-03-03] MEDS: SENNA 8.6 MG TAB PO SCH (20:59)
[2024-03-04 04:05] VITALS: O2SAT 94
--- NOTE | 2024-03-04 06:59 | Orthopedic Progress Note ---
Date of Service March 04, 2024 Assessment & Plan (1) Status post reverse total replacement of left shoulder: Overall he is doing fairly well. He is not having much pain in the left shoulder. He will be seen by physical therapy today for ambulation and range of motion exercises. He can be discharged charged to home later today. He will follow-up with orthopedics in 2 weeks. Dara Bustos was seen and examined at bedside this morning. Overall he is doing fairly well. He is not having much pain in the left shoulder. He had a little trouble sleeping last night. Otherwise has no complaints.. Review of Systems All systems reviewed & are unremarkable except as noted in HPI & below. Physical Exam On physical exam of the left shoulder, the dressing has some blood in the window which is to be expected. He is wearing his sling as instructed. The nerve block is still in effect. Results & Data Results & Data Laboratory Results . Diagnostic Findings Postoperative x-rays of the left shoulder show the prosthesis to be in anatomic alignment without any evidence of fracture complication, or loosening.. PG Care Time/CCT Total # of Minutes Spent Total Time Spent with Patient: Total time spent is greater than 50% in coordination of care (as documented) at patient's floor/unit and/or counseling patient: Coding Level of Care Code 46403 Post Operative Follow-Up Diagnoses Status post reverse total replacement of left shoulder Z96.612
--- NOTE | 2024-03-04 07:00 | Discharge Summary ---
Date of Service March 04, 2024 Principal Diagnosis Same as "Discharge Diagnosis" noted below under Discharge Instructions. Discharge Exam On physical exam of the left shoulder, the dressing has some blood in the window which is to be expected. He is wearing his sling as instructed. The nerve block is still in effect. Discharge Data Procedures Performed Operation Date: 03/03/24 10:00 Actual Procedures p Left Reverse Total Shoulder Arthroplasty(Left) - Kareem Hua DO Ordered Studies 03/03/24 05:00 US - OR guided needle placemen Routine Hospital Course (1) Status post reverse total replacement of left shoulder: On March 03, 2024 Akash arrived at [facility] and underwent a left reverse shoulder replacement without complication. He had a general anesthetic and a left interscalene nerve block. Postoperatively he was placed in a sling and transferred to the general orthopedic floors. His hospital course was uneventful. On postop day #1, his vital signs were stable and his pain was well-controlled. He was able to participate well with physical therapy doing ambulation and range of motion exercises. He was then discharged to home. He will follow-up with orthopedics in 2 weeks. PG Care Time/CCT Total # of Minutes Spent Total Time Spent with Patient: Total time spent is greater than 50% in coordination of care (as documented) at patient's floor/unit and/or counseling patient: Discharge Plan Discharge Items Patient Disposition: Home - Self-Care Reason For Visit: Left Shoulder Arthritis Discharge Diagnosis: Left reverse shoulder replacement Activity: Per Instructions section Non-emergency contact: Surgeon Call non-emergency contact if: your wound has increased redness and your wound has increased drainage Follow-up/Referrals: Mamta Lassiter MD [Primary Care Provider] - Diet: Regular Addtl Attending Provider Instructions: Activity and Therapy Recommendations: * If you are using [facility] then therapy will be provided at your home until they feel you have accomplished all of your goals. * If you are using [facility] then Physical Therapy will be provided until they feel you are ready to start Outpatient Physical Therapy. * If you are not using home therapy then Outpatient Physical Therapy should start about 3-5 days from your day of surgery. Therapy will last about 8-12 weeks * Wear your sling for 3 weeks, unless otherwise instructed. You may remove your sling to shower and to dress, but otherwise, you should be in your sling at all times, including while sleeping * The shoulder replacement is very stable and you can use your hand while in the sling * You were shown a series of exercises in the hospital. Do these exercises daily including the exercises you were shown in physical therapy. Medications: * Narcotic You will likely be sent home from the hospital with a prescription for the narcotic pain medication that worked best throughout your stay. * Cefadroxil -take the antibiotic twice a day for 10 days to help prevent infection. * Other medications may be prescribed for specific circumstances. If you have any questions, please call the office at . * Resume previous home medications unless otherwise instructed Dressing Care: Leave the Silverlon dressing in place for 7 days. After 7 days you may remove the dressing. If the incision is not draining then you may leave the katerine open to air. If there is a little bit of drainage or if the katerine are getting stuck on your clothing then cover the incision with a dry dressing. The katerine will be removed at your 2 week follow-up appointment. Showering: You may shower with the Silverlon dressing in place. Do not let the shower spray hit the dressing directly. Pat the Silverlon dressing dry. If the dressing becomes wet underneath, then simply remove the dressing. Keep the incision dry until you are 7 days out from the day of surgery. After 7 days you may remove the Silverlon dressing and shower with the katerine exposed. Let soapy water run over the katerine and pat them dry. Do not scrub or soak the incision. Diet: You may resume your previous diet. Things To Watch For: * Drainage from the incision site that occurs more than one week after your surgery. * Increased redness at the incision site. * Fever above 102 degrees Fahrenheit. * Unusual chest pain or shortness of breath. * Call [facility] at with any of the above problems Follow-Up Visit: Follow-up with Dr. Hua's office 2-3 weeks after your day of surgery. We will remove your katerine and answer any questions. If you have any additional questions or concerns, Dr Hua is usually in the office at the same time and will be available An appointment was probably scheduled when you signed-up for surgery in the office. If you have any questions call More detailed instructions as well as Frequently Asked Questions were provided in a folder by our office when you signed-up for surgery. Please review these instructions when you get home. If you have any further questions or concerns, please feel free to call the office at [phone] Pending Studies at Discharge: No Stand-Alone Forms: [facility], Smoking Cessation Medications and DC Order Prescriptions: New oxycodone 5 mg Tablet 5 mg PO Q4H PRN (Reason: pain) Qty: 30 0RF cefadroxil 500 mg capsule 500 mg PO BID 10 Days Qty: 20 0RF Continued amoxicillin 500 mg tablet 2,000 mg PO ONCE PRN (Reason: prophylaxis) Qty: 4 2RF Rx Instructions: ONE HOUR PRIOR TO DENTAL PROCEDURE tramadol 50 mg tablet 50 mg PO Q6H PRN (Reason: pain) Qty: 30 0RF aspirin [Adult Aspirin Regimen] 81 mg tablet,delayed release (DR/EC) 81 mg PO DAILY omega-3 fatty acids 1,000 mg capsule 1,000 mg PO DAILY multivitamin Tablet 1 tab PO QAM vitamin E 400 unit Capsule 400 unit PO QAM cholecalciferol (vitamin D3) [Vitamin D3] 1,000 unit Capsule 1,000 unit PO QAM cyanocobalamin (vitamin B-12) [Vitamin B-12] 1,000 mcg Tablet 1,000 mcg PO QAM calcium carbonate-vitamin D3 [Caltrate with Vitamin D3] 600 mg(1,500mg) -800 unit Tablet 1 tab PO QAM celecoxib 200 mg capsule 200 mg PO DAILY PRN (Reason: prn) Rx Instructions: take 1 capsule by mouth daily as needed for arthritis pain lisinopril 10 mg tablet 10 mg PO QAM omeprazole 20 mg capsule,delayed release(DR/EC) 20 mg PO DAILY PRN (Reason: prn) Rx Instructions: Take 1 capsule by mouth once daily Admission Data Admit Date/Time: 03/03/24 11:43 Attending Provider: Kareem Hua Admit Provider: Kareem Hua Primary Care Provider: Mamta Lassiter
[2024-03-04 07:45] VITALS: BP 129/73; PULSE 60; RESP 18; TEMP 98.2
[2024-03-04] MEDS: MULTIVITAMIN TAB PO SCH (08:18)
[2024-03-04] MEDS: PANTOprazole 40 MG TAB PO PRN (08:19)
[2024-03-04] MEDS: CALCIUM 600MG + VIT D 400 IU TAB PO SCH (08:19)
[2024-03-04] MEDS: dexAMETHasone 4 MG TAB PO SCH (08:19)
[2024-03-04] MEDS: ASPIRIN 81 MG ECTAB PO SCH (08:19)
[2024-03-04] MEDS: TOCOPHERYL, DL-ALPHA 400 UNITS 180 MG CAP PO SCH (08:20)
[2024-03-04] MEDS: CYANOCOBALAMIN (B-12) 500 MCG TABLET PO SCH (08:20)
[2024-03-04] MEDS: lisinopril 10 MG TAB PO SCH (08:20)
[2024-03-04] MEDS: CHOLECALCIFEROL 25 MCG (1000 UNITS) TAB PO SCH (08:20)
[2024-03-04] MEDS: OMEGA-3 (PURIFIED FISH OIL) 1 GM CAP PO SCH (08:21)
[2024-03-04] MEDS ORDERED: NON-FORMULARY MEDICATION (Multivitamin Tablet) PO SCH (09:00)
== END 2024-03-04 12:48 | disposition home or self-care (01) ==
LOC: 3W 08:05 → ASU 08:05